=== PATIENT | male | born 1980 | race Caucasian/White ===

== ENCOUNTER 2018-08-15 16:27 | Inpatient (IN) | payer MEDICARE, MEDICAID ==
--- NOTE | 2018-08-15 18:05 | PCM.HP ---
H&P History of Present Illness - General Date of Service: 08/15/18 Admit Problem/Dx: Admission Diagnosis/Problem Admission Diagnosis/Problem Obstruction of duodenum Source of Information: Patient, Care Home Records History Limitations: Reports: Other (history from patient limited by his mental illness) - History of Present Illness Initial Comments - Free Text/Narative: Mr. Mcdaniel is a 37 yo male who presented to clinic today for evaluation of increasing abdominal distension over the past 24-48 hours. He has also had nausea and has vomited twice as well. He is having gas output from his ostomy as well as pure liquid output from his ostomy; no stool output from the ostomy. He has had some generalized abdominal discomfort as well. No fever or chills. He has not been eating or drinking well today. He has not voided today as far as the staff with him is aware. The patient has a history of recurrent SBO's. He has required surgery for this in the past but surgery is considered a last resort at this point. He was hospitalized in [place] in early April for the same issue and surgery had recommended conservative management at that time. He did well and was discharged back to the care center; he has not had any further issues until now. - Related Data Allergies/Adverse Reactions: Allergies Allergy/AdvReac Type Severity Reaction Status Date / Time No Known Allergies Allergy Verified 02/22/18 15:47 Home Medications: Home Meds Acetaminophen [Tylenol] 2 tab PO DAILY PRN 08/15/18 [History] Acetaminophen [Tylenol] 2 tab PO TID 08/15/18 [History] Albuterol Sulfate [Proventil Hfa] 2 puff INH Q6HR PRN 08/15/18 [History] Aloe Vera/Sodium Chloride [[place] Saline Nasal Gel] 2 spray CATHRYN BID PRN 08/15/18 [ History] Calcitriol 1 cap PO DAILY 08/15/18 [History] Calcium Citrate/Vitamin D3 [Calcium Citrate - Vit D Tablet] 1 tab PO TID [History] Cholecalciferol (Vitamin D3) [Vitamin D3] 1 tab PO DAILY 08/15/18 [History] Cholestyramine/Sucrose [Cholestyramine] 1 packet PO TID 08/15/18 [History] Clindamycin Phos/Benzoyl Perox [Clindamycin-Benzoyl Perox 1-5%] 1 applic TOP BID 08/15/18 [History] FLUoxetine [PROzac] 10 ml PO DAILY 08/15/18 [History] Fluticasone/Salmeterol [Advair 250-50] 1 puff INH BID 08/15/18 [History] Lactobacillus Rhamnosus GG [Culturelle] 1 cap PO BID 08/15/18 [History] Levothyroxine 25 mcg PO DAILY 08/15/18 [History] Magnesium Chloride [Mag-64] 2 tab PO TID 08/15/18 [History] Midodrine 1 tab PO BIDAC 08/15/18 [History] Multivitamin with Minerals [Multivitamins with Minerals] 1 tab PO DAILY [History] Nystatin [Nyamyc] 1 applic TOP BID PRN 08/15/18 [History] OLANZapine [ZyPREXA] 1 tab PO QID 08/15/18 [History] Potassium Chloride [Klor-Con M20] 20 meq PO BID 08/15/18 [History] Topiramate [Topamax] 250 mg PO BID 08/15/18 [History] cloZAPine [Clozapine Odt] 200 mg PO DAILY 08/15/18 [History] clonazePAM [Klonopin] 1 tab PO BID 08/15/18 [History] Past Medical History HEENT History: Reports: None Cardiovascular History: Reports: Other (See Below) Other Cardiovascular History: hypotension Respiratory History: Reports: Asthma, Sleep Apnea Other Respiratory History: acute respiratory failure Gastrointestinal History: Reports: Bowel Obstruction, Chronic Diarrhea, GERD, Other (See Below) Other Gastrointestinal History: ileostomy Genitourinary History: Reports: None Musculoskeletal History: Reports: Other (See Below) Other Musculoskeletal History: chronic pain syndrome. muscle weakness Neurological History: Reports: Brain Injury, Seizure, Other (See Below) Other Neuro History: dysphonia. dementia Psychiatric History: Reports: Anxiety, Depression, OCD, Schizophrenia Endocrine/Metabolic History: Reports: Hypoparathyroidism, Hypothyroidism, Vitamin D Deficiency Hematologic History: Reports: Other (See Below) Other Hematologic History: thrombocytopenia. vit D deficiency. hypomagnesium. hypocalcemia Immunologic History: Reports: None Oncologic (Cancer) History: Reports: None Dermatologic History: Reports: None - Infectious Disease History Infectious Disease History: Reports: None - Past Surgical History HEENT Surgical History: Reports: Oral Surgery, Tonsillectomy GI Surgical History: Reports: Appendectomy, Cholecystectomy, Colon, Hernia Repair/Other, Other (See Below) Other GI Surgeries/Procedures: ileostomy Musculoskeletal Surgical History: Reports: Arthroscopic Knee, ORIF Social & Family History - Family History Family Medical History: Unobtainable - Tobacco Use Smoking Status *Q: Never Smoker - Alcohol Use Alcohol Use History: No Alcohol Use in Last Twelve Months: No - Recreational Drug Use Recreational Drug Use: No - Living Situation & Occupation Living situation: Reports: Single, Extended Care Facility Occupation: Disabled H&P Review of Systems - Review of Systems: Review Of Systems: See Below General: Reports: No Symptoms HEENT: Reports: No Symptoms Pulmonary: Reports: No Symptoms Cardiovascular: Reports: No Symptoms Gastrointestinal: Reports: Abdominal Pain, Distension Genitourinary: Reports: Retention Musculoskeletal: Reports: No Symptoms Skin: Reports: No Symptoms Psychiatric: Reports: No Symptoms Neurological: Reports: No Symptoms Exam - Exam Exam: See Below - Vital Signs Vital Signs: Last Vital Signs Temp 37.0 C 08/15/18 17:06 Pulse 111 H 08/15/18 17:06 Resp BP 100/65 08/15/18 17:06 Pulse Ox 92 L 08/15/18 17:06 Weight: 76.476 kg - Exam General: Alert, Cooperative HEENT: Conjunctiva Clear, Mucosa Moist & [place], Posterior Pharynx Clear, Pupils Equal, Pupils Reactive, TMs Clear Neck: Supple, Trachea Midline. No: Lymphadenopathy, Thyromegaly Lungs: Clear to Auscultation, Normal Respiratory Effort Cardiovascular: Regular Rhythm, Tachycardia GI/Abdominal Exam: Soft, No Organomegaly, No Mass, Distended, Tender (mildly tender diffusely without rebound, rigidity, or guarding), Abnormal Bowel Sounds (decreased throughout), Other (ostomy draining clear-green liquid) Extremities: Non-Tender, No Pedal Edema, Normal Capillary Refill Peripheral Pulses: 2+: Radial (L), Radial (R) Skin: Warm, Dry, Intact *Q Meaningful Use (ADM) - VTE *Q VTE Anticoagulation Contraindications: Med/TX Not Indicated/Need - Problem List (1) SBO (small bowel obstruction) SNOMED Code(s): 317223282 ICD Code: K56.609 - UNSP INTESTNL OBST, UNSP TO PARTIAL VERSUS COMPLETE OBST Status: Acute Current Visit: No (2) Acute renal failure SNOMED Code(s): 31219197 ICD Code: N17.9 - ACUTE KIDNEY FAILURE, UNSPECIFIED Status: Acute Current Visit: No Qualifiers: Acute renal failure type: unspecified Qualified Code(s): N17.9 - Acute kidney failure, unspecified (3) Urinary retention SNOMED Code(s): 749198505 ICD Code: R33.9 - RETENTION OF URINE, UNSPECIFIED Status: Acute Current Visit: Yes (4) High output ileostomy SNOMED Code(s): 604294283 ICD Code: R19.8 - OTH SYMPTOMS AND SIGNS INVOLVING THE DGSTV SYS AND ABDOMEN ; Z93.2 - ILEOSTOMY STATUS Status: Acute Current Visit: Yes (5) Schizoaffective disorder SNOMED Code(s): 81506851 ICD Code: F25.9 - SCHIZOAFFECTIVE DISORDER, UNSPECIFIED Status: Acute Current Visit: Yes (6) Hypotension SNOMED Code(s): 63572372 ICD Code: I95.9 - HYPOTENSION, UNSPECIFIED Status: Chronic Current Visit : Yes Qualifiers: Hypotension type: idiopathic hypotension Qualified Code(s): I95.0 - Idiopathic hypotension (7) Seizure disorder SNOMED Code(s): 209762841 ICD Code: G40.909 - EPILEPSY, UNSP, NOT INTRACTABLE, WITHOUT STATUS EPILEPTICUS Status: Chronic Current Visit: Yes (8) Asthma SNOMED Code(s): 469669245 ICD Code: J45.909 - UNSPECIFIED ASTHMA, UNCOMPLICATED Status: Chronic Current Visit: Yes Qualifiers: Asthma severity: moderate Asthma persistence: persistent Asthma complication type: uncomplicated Qualified Code(s): J45.40 - Moderate persistent asthma, uncomplicated (9) Hypoparathyroidism SNOMED Code(s): 91527007 ICD Code: E20.9 - HYPOPARATHYROIDISM, UNSPECIFIED Status: Chronic Current Visit: Yes Qualifiers: Hypoparathyroidism type: idiopathic Qualified Code(s): E20.0 - Idiopathic hypoparathyroidism (10) Hypothyroidism SNOMED Code(s): 65294655 ICD Code: E03.9 - HYPOTHYROIDISM, UNSPECIFIED Status: Chronic Current Visit: Yes Problem List Initiated/Reviewed/Updated: Yes Orders Last 24hrs: Active Orders 24 hr Category Date Time Status Admission Status [Patient Status] [ADT] Routine ADT 08/15/18 16:37 Active NG [Gastrointestinal Tube Mgmt] [RC] ASDIRECTED Care 08/15/18 17:08 Active Notify Provider Vital Signs [RC] ASDIRECTED Care 08/15/18 17:06 Active Oxygen Therapy [RC] PRN Care 08/15/18 17:06 Active Up With Assistance [RC] ASDIRECTED Care 08/15/18 17:06 Active VTE/DVT Education [RC] PER UNIT ROUTINE Care 08/15/18 17:06 Active Vital Signs [RC] 06,10,14,18,22,02 Care 08/15/18 17:06 Active Nothing per Oral Now Diet [DIET] Diet 08/15/18 Dinner Active Chest 1V Frontal [CR] Routine Exams 08/15/18 17:38 Taken Lactated Ringers [Ringers, Lactated] 1,000 ml Med 08/15/18 17:15 Active IV ASDIRECTED Anticoagulation Contraindications VTE [AST] Per Unit Oth 08/15/18 17:06 Ordered Routine NG [Nasogastric Orogastric Tube Insertion] [OM.PC] Oth 08/15/18 17:08 Ordered Routine Resuscitation Status Routine Resus Stat 08/15/18 17:06 Ordered Medication Orders Lactated Ringer's (Ringers, Lactated) 1,000 mls @ 250 mls/hr IV ASDIRECTED BENJI Assessment/Plan Comment:: 37 yo male admitted with SBO and acute renal failure after presenting to clinic for evaluation of abdominal distension, nausea, and vomiting. #1 SBO - History and x-ray consistent with SBO. - Holding off on CT as this will not change initial management and lactate is normal. - Reasonable to start with conservative management as he has responded well to this in the past, including as recently as April of this year. - Spoke with his mom who is in agreement with hospitalization here in [place] with plan to transfer if he is not improving. - NG tube to be placed by nursing. Will have this on LIS overnight. - He will be NPO except for when this is clamped for med administration. He is on psychiatric medications that are absolutely necessary and do not have IV alternatives; therefore, these will still need to be given orally. - Will start with LR @ 250 cc/hr and monitor urine output. - Initial lactate normal. Will repeat with am labs. #2 Acute renal failure #3 Urinary retention - Creatinine is up to 3.8 today with his normal being <1. - Patient will get IV fluids as above. - Will monitor urine output. - If he does not void by 8 pm, will attempt to bladder scan him. This will be difficult, though, with the amount of air he has in his bowels. - May need to do an I/O catheterization to clarify if he has urine in his bladder. - Will reassess at 8 pm. #4 High output ileostomy - Output right now is mainly liquid in comparison to his usual loose stool. - Will monitor closely but will not add any additional fiber to help slow this down in the setting of a known bowel obstruction. #5 Schizoaffective disorder #6 Hypotension #7 Seizure Disorder #8 Asthma #9 Hypoparathyroidism #10 Hypothyroidism - Above problems are stable. - Continue only essential home medications as his NG tube will need to be clamped for 30 minutes after each administration. Patient will be admitted acute due to anticipated need for admission >48 hours. See details under problems above. Code status is DNR/DNI - discussed with mom on admission. Holding off on VTE prophylaxis until labs tomorrow am.
--- NOTE | 2018-08-15 18:12 | CR ---
[id number] RAD/RAD Chest PA or AP 1V EXAM: FRONTAL CHEST INDICATION: Nasogastric tube placement. COMPARISON: None. DISCUSSION: A nasogastric tube is present tip at the level of the distal esophagus. Consider advancement of at least 10 cm and reimaging. The lungs are hypoinflated. There is left base atelectasis which could obscure early infiltrates. Heart size is obscured by the volume loss in the left lung base. IMPRESSION: 1. Nasogastric tube tip distal esophagus. Consider advancement and repeat imaging. Hilario Castaneda MD 08/15/18 1417 Thank you for allowing us to participate in the care of your patient.
[2018-08-15] MEDS ORDERED: Sodium Chloride 0.65% Nasal Spray 45 ML Bottle NAS PRN (18:33)
[2018-08-15] MEDS ORDERED: Albuterol 0.083% 2.5 MG/3 ML Neb Soln INH PRN (18:33)
--- NOTE | 2018-08-15 18:58 | CR ---
[id number] RAD/RAD Chest PA or AP 1V EXAM: FRONTAL CHEST INDICATION: Nasogastric tube placement. COMPARISON: Radiographs from earlier same date. DISCUSSION: A limited view of the lower chest and upper abdomen was obtained for nasogastric tube placement. A nasogastric tube has been advanced with the tip now in the proximal to mid gastric body in satisfactory position. Partially characterized dilated bowel loops in the upper abdomen. IMPRESSION: 1. A nasogastric tube is in satisfactory position tip in the proximal to mid gastric body. Hilario Castaneda MD 08/15/18 2152 Thank you for allowing us to participate in the care of your patient.
[2018-08-15] MEDS: Lactated Ringers 1,000 ML IV SCH ×2 (19:00→23:04)
[2018-08-15] MEDS: OLANZapine 10 MG Tab NGTUBE SCH (20:55)
[2018-08-15] MEDS: Topiramate 50 MG Tab NGTUBE SCH (20:55)
[2018-08-15] MEDS: ClonazePAM 0.5 MG Tab NGTUBE SCH (20:55)
[2018-08-15] MEDS: Fluticasone-Salmeterol 113-14 MCG Powder Inhalant INH SCH (20:55)
[2018-08-16] MEDS: Lactated Ringers 1,000 ML IV SCH ×3 (03:03→22:17)
[2018-08-16] MEDS: Midodrine 2.5 MG Tab NGTUBE SCH ×2 (06:09→16:52)
[2018-08-16 07:05] LABS: ANION GAP 17.4 mmol/L (10-20)
[2018-08-16] MEDS ORDERED: FLUOXETINE PO SCH (08:00)
[2018-08-16] MEDS: ClonazePAM 0.5 MG Tab NGTUBE SCH ×2 (08:24→22:29)
[2018-08-16] MEDS: Topiramate 50 MG Tab NGTUBE SCH ×2 (08:24→22:29)
[2018-08-16] MEDS: OLANZapine 10 MG Tab NGTUBE SCH ×4 (08:25→22:29)
[2018-08-16] MEDS: Fluticasone-Salmeterol 113-14 MCG Powder Inhalant INH SCH ×2 (08:29→22:42)
[2018-08-16] MEDS ORDERED: Lactated Ringers 1,000 ML IV SCH (08:45)
--- NOTE | 2018-08-16 09:19 | PCM.PN ---
- General Info Date of Service: 08/16/18 Subjective Update: 37 yo male hospital day #2 admitted with a small bowel obstruction. Patient did well overnight. Refused catheter but did void on his own. States his pain is improved this morning. Still mainly liquid coming from his ostomy. Has had no nausea or vomiting since admission. No fever. He is wondering if he can eat. - Review of Systems General: Reports: No Symptoms HEENT: Reports: No Symptoms Pulmonary: Reports: No Symptoms Cardiovascular: Reports: No Symptoms Genitourinary: Reports: No Symptoms Musculoskeletal: Reports: No Symptoms Skin: Reports: No Symptoms Neurological: Reports: No Symptoms - Patient Data Vitals - Most Recent: Last Vital Signs Temp 36.7 C 08/16/18 06:00 Pulse 104 H 08/16/18 06:00 Resp 16 08/16/18 06:00 BP 102/57 L 08/16/18 06:00 Pulse Ox 92 L 08/16/18 06:00 Weight - Most Recent: 76.476 kg I&O - Last 24 Hours: Intake & Output 08/15/18 08/16/18 08/16/18 22:59 06:59 14:59 Intake Total 2832 Output Total 1500 2750 Balance -1500 82 Lab Results Last 24 Hours: Laboratory Results - last 24 hr 08/16/18 08/16/18 08/16/18 Range/Units 06:31 06:31 06:31 WBC 14.4 H (4.0-10.0) x10^3/uL RBC 5.27 (4.5-6.0) x10^6/uL Hgb 14.2 (14.0-18.0) g/dL Hct 42.3 (40.0-52.0) % MCV 80.3 D (78.0-93.0) fL MCH 26.9 (26.0-32.0) pg MCHC 33.6 (32.0-36.0) g/dL RDW Coeff of Shyann 15.8 H (10.0-15.0) % Plt Count 170 (130-400) x10^3/uL Neut % (Auto) 68.0 (50.0-80.0) % Lymph % (Auto) 17.8 L (25.0-50.0) % [place] % (Auto) 13.1 H (2.0-11.0) % Eos % (Auto) 1.0 (0.0-4.0) % Baso % (Auto) 0.1 L (0.2-1.2) % Sodium 132 L (136-145) mmol/L Potassium 3.4 L D (3.5-5.1) mmol/L Chloride 91 L (98-107) mmol/L Carbon Dioxide 27 (21-32) mmol/L Anion Gap 17.4 (10-20) mmol/L BUN 56 H (7-18) mg/dL Creatinine 1.9 H D (0.70-1.30) mg/dL Est Cr Clr Drug Dosing 44.14 mL/min Estimated GFR (MDRD) 40 Glucose 109 H (74-106) mg/dL Lactic Acid 1.3 (0.4-2.0) mmol/L Calcium 7.7 L D (8.5-10.1) mg/dL Med Orders - Current: Current Medications Albuterol (Proventil Neb Soln) 2.5 mg INH Q6H PRN PRN Reason: wheezing Clonazepam (Klonopin) 1 mg NGTUBE BID [facility] Last Admin: 08/16/18 08:24 Dose: 1 mg Lactated Ringer's (Ringers, Lactated) 1,000 mls @ 250 mls/hr IV ASDIRECTED BENJI Stop: 08/16/18 12:46 Lactated Ringer's (Ringers, Lactated) 1,000 mls @ 125 mls/hr IV ASDIRECTED BENJI Midodrine (Midodrine) 5 mg NGTUBE BIDAC [facility] Last Admin: 08/16/18 06:09 Dose: 5 mg Non-Formulary Medication (Aloe Vera/Sodium Chloride [[place] Saline Nasal Gel]) 2 spray CATHRYN BID PRN PRN Reason: Rash Non-Formulary Medication (Clozapine [Clozapine Odt]) 200 mg PO DAILY BENJI Non-Formulary Medication (Fluoxetine) 10 ml PO DAILY BENJI Olanzapine (Zyprexa) 10 mg NGTUBE QID [facility] Last Admin: 08/16/18 08:25 Dose: 10 mg Fluticasone/Salmeterol (Fluticasone-Salmeterol 113-14 Mcg Powder Inh) 0 puff INH BID [facility] Last Admin: 08/16/18 08:29 Dose: Not Given Topiramate (Topamax) 250 mg NGTUBE BID [facility] Last Admin: 08/16/18 08:24 Dose: 250 mg Discontinued Medications Lactated Ringer's (Ringers, Lactated) 1,000 mls @ 250 mls/hr IV ASDIRECTED [facility] Last Admin: 08/16/18 03:03 Dose: 250 mls/hr - Exam General: Alert, Oriented HEENT: Pupils Equal, Pupils Reactive, Mucous Membr. Moist/[place] Neck: Supple, Trachea Midline, No Thyromegaly. No: Lymphadenopathy Lungs: Clear to Auscultation, Normal Respiratory Effort Cardiovascular: Regular Rhythm, No Murmurs, Tachycardia GI/Abdominal Exam: Soft, Distended (but much improved compared to yesterday), Tender (mild diffuse tenderness also improved compared to yesterday; no rebound , rigidity, or guarding), Abnormal Bowel Sounds (hypoactive bowel sounds) Extremities: Non-Tender, No Pedal Edema, Normal Capillary Refill Peripheral Pulses: 2+: Radial (L), Radial (R) Skin: Warm, Dry, Intact Neurological: No New Focal Deficit - Problem List & Annotations (1) SBO (small bowel obstruction) SNOMED Code(s): 449956293 Code(s): K56.609 - UNSP INTESTNL OBST, UNSP TO PARTIAL VERSUS COMPLETE OBST Status: Acute Current Visit: No (2) Acute renal failure SNOMED Code(s): 19651101 Code(s): N17.9 - ACUTE KIDNEY FAILURE, UNSPECIFIED Status: Acute Current Visit: No Qualifiers: Acute renal failure type: unspecified Qualified Code(s): N17.9 - Acute kidney failure, unspecified (3) Urinary retention SNOMED Code(s): 235099739 Code(s): R33.9 - RETENTION OF URINE, UNSPECIFIED Status: Acute Current Visit: Yes (4) High output ileostomy SNOMED Code(s): 241867158 Code(s): R19.8 - OTH SYMPTOMS AND SIGNS INVOLVING THE DGSTV SYS AND ABDOMEN; Z93.2 - ILEOSTOMY STATUS Status: Acute Current Visit: Yes (5) Schizoaffective disorder SNOMED Code(s): 41003383 Code(s): F25.9 - SCHIZOAFFECTIVE DISORDER, UNSPECIFIED Status: Acute Current Visit: Yes (6) Hypotension SNOMED Code(s): 30255263 Code(s): I95.9 - HYPOTENSION, UNSPECIFIED Status: Chronic Current Visit: Yes Qualifiers: Hypotension type: idiopathic hypotension Qualified Code(s): I95.0 - Idiopathic hypotension (7) Seizure disorder SNOMED Code(s): 166455935 Code(s): G40.909 - EPILEPSY, UNSP, NOT INTRACTABLE, WITHOUT STATUS EPILEPTICUS Status: Chronic Current Visit: Yes (8) Asthma SNOMED Code(s): 176247173 Code(s): J45.909 - UNSPECIFIED ASTHMA, UNCOMPLICATED Status: Chronic Current Visit: Yes Qualifiers: Asthma severity: moderate Asthma persistence: persistent Asthma complication type: uncomplicated Qualified Code(s): J45.40 - Moderate persistent asthma, uncomplicated (9) Hypoparathyroidism SNOMED Code(s): 69044454 Code(s): E20.9 - HYPOPARATHYROIDISM, UNSPECIFIED Status: Chronic Current Visit: Yes Qualifiers: Hypoparathyroidism type: idiopathic Qualified Code(s): E20.0 - Idiopathic hypoparathyroidism (10) Hypothyroidism SNOMED Code(s): 57112212 Code(s): E03.9 - HYPOTHYROIDISM, UNSPECIFIED Status: Chronic Current Visit: Yes - Problem List Review Problem List Initiated/Reviewed/Updated: Yes - My Orders Last 24 Hours: My Active Orders 08/15/18 16:37 Admission Status [Patient Status] [ADT] Routine 08/15/18 17:06 Notify Provider Vital Signs [RC] 06,10,14,18,22,02 Oxygen Therapy [RC] .PRN Up With Assistance [RC] 08,20 VTE/DVT Education [RC] .PRN Vital Signs [RC] 06,10,14,18,22,02 Anticoagulation Contraindications VTE [AST] Per Unit Routine Resuscitation Status Routine 08/15/18 17:08 NG [Gastrointestinal Tube Mgmt] [RC] 08,20 NG [Nasogastric Orogastric Tube Insertion] [OM.PC] Routine 08/15/18 18:33 Albuterol [Proventil Neb Soln] 2.5 mg INH Q6H PRN Aloe Vera/Sodium Chloride [[place] Saline Nasal Gel] 2 spray CATHRYN BID PRN 08/15/18 20:00 ClonazePAM [KlonoPIN] 1 mg NGTUBE BID Fluticasone/Salmeterol [Fluticasone-Salmeterol 113-14 MCG Powder Inh] 0 puff INH BID OLANZapine [ZyPREXA] 10 mg NGTUBE QID Topiramate [Topamax] 250 mg NGTUBE BID 08/15/18 23:48 CULTURE MRSA SURVEY [RM] Routine 08/15/18 Dinner Nothing per Oral Now Diet [DIET] 08/16/18 07:00 Midodrine 5 mg NGTUBE BIDAC 08/16/18 08:00 FLUoxetine 10 ml PO DAILY cloZAPine [Clozapine Odt] 200 mg PO DAILY 08/16/18 08:45 Lactated Ringers [Ringers, Lactated] 1,000 ml IV ASDIRECTED 08/16/18 13:00 Lactated Ringers @ 125 MLS/HR(1,000ml) Lactated Ringers [Ringers, Lactated] 1, 000 ml IV ASDIRECTED 08/17/18 05:11 BASIC METABOLIC PANEL,BMP [CHEM] Routine CBC WITH AUTO DIFF [HEME] Routine - Assessment Assessment:: 37 yo male hospital day #2 admitted with SBO and HERMES. Labs much better today. Patient is also feeling much better and is asking to eat. - Plan Plan:: #1 SBO - History and x-ray consistent with SBO. - Holding off on CT as this will not tire changer aircraft at this point. Will reconsider if symptoms worsen again. - Still having a lot of NG tube output. Therefore, will continue this on LIS. - He will be NPO except for when this is clamped for med administration. He is on psychiatric medications that are absolutely necessary and do not have IV alternatives; therefore, these will still need to be given orally. - He can also have ice chips today. - Continue LR @ 250 cc/hr for another liter and then decrease rate to 125 cc/ hr. Net fluid balance has been negative so will continue to monitor this closely. - Initial and repeat lactate both normal. WBC down compared to yesterday; will continue to monitor off antibiotics. #2 Acute renal failure #3 Urinary retention - Creatinine is improved to from 3.8 yesterday. His normal is <1. - Patient will get IV fluids as above. - Will continue to monitor urine output closely. #4 High output ileostomy - Output right now is mainly liquid in comparison to his usual loose stool. - Will monitor closely but will not add any additional fiber to help slow this down in the setting of a known bowel obstruction. #5 Schizoaffective disorder #6 Hypotension #7 Seizure Disorder #8 Asthma #9 Hypoparathyroidism #10 Hypothyroidism - Above problems are stable. - Continue only essential home medications as his NG tube will need to be clamped for 30 minutes after each administration. Patient will remain on acute status today - anticipate he will be admitted over the weekend given it is unlikely he will be prepared for d/c tomorrow and the care center is not likely to take him back on a Sunday. Parents updated. See details under problems above. Code status is DNR/DNI - discussed with mom on admission. Will start heparin TID for VTE prophylaxis.
[2018-08-16] MEDS: Heparin Sodium 5,000 Units/ML Vial SUBCUT SCH ×2 (11:55→16:51)
[2018-08-16] MEDS: FLUOXETINE 40 MG PO SCH (14:21)
[2018-08-16] MEDS: CLOZAPINE 200 MG PO SCH ×2 (14:21→22:30)
[2018-08-16] MEDS: Cholestyramine/Aspartame Powder 4 GM Packet PO SCH (16:51)
[2018-08-17] MEDS: Heparin Sodium 5,000 Units/ML Vial SUBCUT SCH ×3 (01:55→17:29)
[2018-08-17] MEDS: Lactated Ringers 1,000 ML IV SCH ×3 (05:51→21:41)
[2018-08-17] MEDS: Cholestyramine/Aspartame Powder 4 GM Packet PO SCH ×4 (06:34→16:01)
[2018-08-17] MEDS: Midodrine 2.5 MG Tab NGTUBE SCH ×2 (06:34→16:01)
[2018-08-17 08:01] LABS: CHLORIDE,CL 94 mmol/L (98-107); SODIUM,NA 135 mmol/L (136-145)
[2018-08-17 08:15] LABS: ANION GAP 13.5 mmol/L (10-20)
[2018-08-17] MEDS: Topiramate 50 MG Tab NGTUBE SCH ×2 (09:26→21:45)
[2018-08-17] MEDS: OLANZapine 10 MG Tab NGTUBE SCH ×4 (09:27→21:46)
[2018-08-17] MEDS: ClonazePAM 0.5 MG Tab NGTUBE SCH ×2 (09:27→21:46)
[2018-08-17] MEDS: CLOZAPINE 200 MG PO SCH ×2 (09:36→21:50)
[2018-08-17] MEDS: FLUOXETINE 40 MG PO SCH (09:36)
[2018-08-17] MEDS: Fluticasone-Salmeterol 113-14 MCG Powder Inhalant INH SCH ×2 (09:37→21:51)
--- NOTE | 2018-08-17 12:08 | PCM.PN ---
- General Info Date of Service: 08/17/18 Admission Dx/Problem (Free Text): History: He is not considered a surgical candidate and has had a few episodes of partial bowel obstruction, relieved with conservative Rx. He was admitted recently with a similar episode, had abdominal distention, nausea and vomiting. He has Hx of small bowel resection, some colon surgery and ileostomy. On admission he was having only a small amount of liquid and gas from the ileostomy, no stool. He was admitted for NG suction, improved rapidly, has had the NG tube clamped since yesterday evening and has been getting full liquids and still feels good, would like scrambled eggs and a pizza he says. His K+ however has gone down from 3.4 yesterday down to 2.5 today. Exam: -No respiratory distress -VS normal -Abdomen not distended, bowel sounds are normal intensity but still mildly hollowsounding Impression: -Schizophrenia -Bowel resection and ileostomy -Partial bowel obstruction, improving -Hypokalemia Plan: -Remove NG tube -Start soft diet -Start oral KCl supplement - Patient Data Vitals - Most Recent: Last Vital Signs Temp 37.3 C 08/17/18 10:00 Pulse 101 H 08/17/18 10:00 Resp 16 08/17/18 10:00 BP 90/60 08/17/18 10:00 Pulse Ox 93 L 08/17/18 10:00 Weight - Most Recent: 76.476 kg I&O - Last 24 Hours: Intake & Output 08/16/18 08/17/18 08/17/18 22:59 06:59 14:59 Intake Total 2073 1677 510 Output Total 500 2130 350 Balance 1573 -453 160 Lab Results Last 24 Hours: Laboratory Results - last 24 hr 08/17/18 08/17/18 Range/Units 07:32 07:32 WBC 10.2 H (4.0-10.0) x10^3/uL RBC 4.65 (4.5-6.0) x10^6/uL Hgb 12.5 L D (14.0-18.0) g/dL Hct 38.8 L (40.0-52.0) % MCV 83.4 D (78.0-93.0) fL MCH 26.9 (26.0-32.0) pg MCHC 32.2 (32.0-36.0) g/dL RDW Coeff of Shyann 15.5 H (10.0-15.0) % Plt Count 144 (130-400) x10^3/uL Neut % (Auto) 69.7 (50.0-80.0) % Lymph % (Auto) 16.5 L (25.0-50.0) % [place] % (Auto) 12.6 H (2.0-11.0) % Eos % (Auto) 1.0 (0.0-4.0) % Baso % (Auto) 0.2 (0.2-1.2) % Sodium 135 L (136-145) mmol/L Potassium 2.5 L* (3.5-5.1) mmol/L Chloride 94 L (98-107) mmol/L Carbon Dioxide 30 (21-32) mmol/L Anion Gap 13.5 (10-20) mmol/L BUN 24 H D (7-18) mg/dL Creatinine 0.9 (0.70-1.30) mg/dL Est Cr Clr Drug Dosing 93.19 mL/min Estimated GFR (MDRD) > 60 Glucose 94 (74-106) mg/dL Calcium 7.4 L (8.5-10.1) mg/dL Lucas Results Last 24 Hours: Microbiology 08/15/18 23:48 MRSA Surveillance Culture - Final Nares, Unspecified (Mrsa) Staphylococcus Aureus Med Orders - Current: Current Medications Albuterol (Proventil Neb Soln) 2.5 mg INH Q6H PRN PRN Reason: wheezing Cholestyramine Resin (Prevalite Packet) 4 gm PO TIDAC [facility] Last Admin: 08/17/18 06:34 Dose: 4 gm Clonazepam (Klonopin) 1 mg NGTUBE BID [facility] Last Admin: 08/17/18 09:27 Dose: 1 mg Heparin Sodium (Porcine) (Heparin Sodium) 5,000 units SUBCUT Q8H [facility] Last Admin: 08/17/18 09:27 Dose: 5,000 units Lactated Ringer's (Ringers, Lactated) 1,000 mls @ 125 mls/hr IV ASDIRECTED [facility] Last Admin: 08/17/18 05:51 Dose: 125 mls/hr Midodrine (Midodrine) 5 mg NGTUBE BIDAC [facility] Last Admin: 08/17/18 06:34 Dose: 5 mg Clozapine 200mg 0 mg PO BID [facility] Last Admin: 08/17/18 09:36 Dose: 200 mg Fluoxetine. 40mg ( (Own Supply)) 1 tab PO DAILY [facility] Last Admin: 08/17/18 09:36 Dose: 1 tab Clozapine 100mg 0 mg PO BEDTIME [facility] Last Admin: 08/16/18 22:31 Dose: 100 mg Olanzapine (Zyprexa) 10 mg NGTUBE QID [facility] Last Admin: 08/17/18 09:27 Dose: 10 mg Potassium Chloride (Potassium Chloride Solution) 20 meq PO BID [facility] Fluticasone/Salmeterol (Fluticasone-Salmeterol 113-14 Mcg Powder Inh) 0 puff INH BID [facility] Last Admin: 08/17/18 09:37 Dose: 1 puff Sodium Chloride ([place] Nasal [place]) 0 ml CATHRYN BID PRN PRN Reason: Rash Topiramate (Topamax) 250 mg NGTUBE BID [facility] Last Admin: 08/17/18 09:26 Dose: 250 mg Discontinued Medications Lactated Ringer's (Ringers, Lactated) 1,000 mls @ 250 mls/hr IV ASDIRECTED [facility] Last Admin: 08/16/18 03:03 Dose: 250 mls/hr Lactated Ringer's (Ringers, Lactated) 1,000 mls @ 250 mls/hr IV ASDIRECTED [facility] Stop: 08/16/18 12:46 Last Admin: 08/16/18 09:30 Dose: 250 mls/hr - Problem List Review Problem List Initiated/Reviewed/Updated: Yes - My Orders Last 24 Hours: My Active Orders 08/17/18 09:46 NG [Nasogastric Orogastric Tube Removal] [OM.PC] Routine 08/17/18 12:15 Potassium Chloride [Potassium Chloride Solution] 20 meq PO BID 08/17/18 Lunch Soft Diet [DIET] Soft Diet [DIET]
[2018-08-17] MEDS: Potassium Chloride 10% 20 MEQ/15 ML Soln 15 ML UD Cup PO SCH ×2 (12:38→21:46)
[2018-08-18] MEDS: Heparin Sodium 5,000 Units/ML Vial SUBCUT SCH ×4 (03:20→21:47)
[2018-08-18] MEDS: Lactated Ringers 1,000 ML IV SCH (05:52)
[2018-08-18] MEDS: Midodrine 2.5 MG Tab NGTUBE SCH ×2 (05:59→17:21)
[2018-08-18] MEDS: Cholestyramine/Aspartame Powder 4 GM Packet PO SCH ×3 (05:59→16:43)
[2018-08-18] MEDS: CLOZAPINE 200 MG PO SCH ×2 (08:09→20:28)
[2018-08-18] MEDS: FLUOXETINE 40 MG PO SCH (08:09)
[2018-08-18] MEDS: ClonazePAM 0.5 MG Tab NGTUBE SCH ×2 (08:11→20:28)
[2018-08-18] MEDS: Topiramate 50 MG Tab NGTUBE SCH ×2 (08:11→20:28)
[2018-08-18] MEDS: OLANZapine 10 MG Tab NGTUBE SCH ×4 (08:11→21:47)
[2018-08-18] MEDS: Fluticasone-Salmeterol 113-14 MCG Powder Inhalant INH SCH ×2 (08:11→20:27)
[2018-08-18] MEDS: Potassium Chloride 10% 20 MEQ/15 ML Soln 15 ML UD Cup PO SCH (08:12)
--- NOTE | 2018-08-18 10:42 | PCM.PN ---
- General Info Date of Service: 08/18/18 Admission Dx/Problem (Free Text): History: His NG tube was removed yesterday, having been clamped overnight before that, and he tolerated the increase in diet up to Soft Diet. He is eating well and his abdomen is not distended. He has a long prolapse of his small bowel into the ileostomy but is stooling OK into the bag. He gets sweaty at night, apparently this is a long-term problem for him, but he is afebrile. Mildly hypotensive, BP 86 this morning. He is not on any antihypertensives. He was started on KCl 20 mEq BID yesterday because of K+ level of 2.5, but he is severely dislikes the liquid form, says he could better swallow a pill, does OK with that. Exam: -Severely dysarthric, cant assess his orientation -He is calm and cooperative -Lungs clear -Heart sounds normal and regular -Abdomen is soft and not distended, not tender -10 cm prolapse of small bowel into his ileostomy bag which is a long-term problem Impression: -Partial small bowel obstruction, resolved with conservative Rx, brief NG suction -Hypokalemia, probably because of the NG suction on admit, tolerates liquid KCl poorly -Schizophrenia, dysarthria -Ileostomy with long prolapse of small bowel but functioning OK Plan: -Change KCl to 10 mg PO BID -Get BMP tomorrow -Anticipate discharge back to [facility] tomorrow - Patient Data Vitals - Most Recent: Last Vital Signs Temp 36.9 C 08/18/18 10:00 Pulse 96 08/18/18 10:00 Resp 18 08/18/18 10:00 BP 100/62 08/18/18 10:00 Pulse Ox 93 L 08/18/18 10:00 Weight - Most Recent: 76.476 kg I&O - Last 24 Hours: Intake & Output 08/17/18 08/18/18 08/18/18 22:59 06:59 14:59 Intake Total 1702 1240 Output Total 950 800 Balance 752 440 Lucas Results Last 24 Hours: Microbiology 08/15/18 23:48 MRSA Surveillance Culture - Final Nares, Unspecified (Mrsa) Staphylococcus Aureus Med Orders - Current: Current Medications Albuterol (Proventil Neb Soln) 2.5 mg INH Q6H PRN PRN Reason: wheezing Cholestyramine Resin (Prevalite Packet) 4 gm PO TIDAC [facility] Last Admin: 08/18/18 05:59 Dose: 4 gm Clonazepam (Klonopin) 1 mg NGTUBE BID [facility] Last Admin: 08/18/18 08:11 Dose: 1 mg Heparin Sodium (Porcine) (Heparin Sodium) 5,000 units SUBCUT Q8H [facility] Last Admin: 08/18/18 05:53 Dose: 5,000 units Midodrine (Midodrine) 5 mg NGTUBE BIDAC [facility] Last Admin: 08/18/18 05:59 Dose: 5 mg Clozapine 200mg 0 mg PO BID [facility] Last Admin: 08/18/18 08:09 Dose: 200 mg Fluoxetine. 40mg ( (Own Supply)) 1 tab PO DAILY [facility] Last Admin: 08/18/18 08:09 Dose: 1 tab Clozapine 100mg 0 mg PO BEDTIME [facility] Last Admin: 08/17/18 21:51 Dose: 100 mg Olanzapine (Zyprexa) 10 mg NGTUBE QID [facility] Last Admin: 08/18/18 08:11 Dose: 10 mg Potassium Chloride (Klor-Con 10) 10 meq PO BIDMEALS [facility] Fluticasone/Salmeterol (Fluticasone-Salmeterol 113-14 Mcg Powder Inh) 0 puff INH BID [facility] Last Admin: 08/18/18 08:11 Dose: 1 puff Sodium Chloride ([place] Nasal [place]) 0 ml CATHRYN BID PRN PRN Reason: Rash Topiramate (Topamax) 250 mg NGTUBE BID [facility] Last Admin: 08/18/18 08:11 Dose: 250 mg Discontinued Medications Heparin Sodium (Porcine) (Heparin Sodium) 5,000 units SUBCUT Q8H [facility] Last Admin: 08/18/18 03:20 Dose: Not Given Lactated Ringer's (Ringers, Lactated) 1,000 mls @ 250 mls/hr IV ASDIRECTED [facility] Last Admin: 08/16/18 03:03 Dose: 250 mls/hr Lactated Ringer's (Ringers, Lactated) 1,000 mls @ 250 mls/hr IV ASDIRECTED [facility] Stop: 08/16/18 12:46 Last Admin: 08/16/18 09:30 Dose: 250 mls/hr Lactated Ringer's (Ringers, Lactated) 1,000 mls @ 125 mls/hr IV ASDIRECTED [facility] Last Admin: 08/18/18 05:52 Dose: 125 mls/hr Potassium Chloride (Potassium Chloride Solution) 20 meq PO BID [facility] Last Admin: 08/18/18 08:12 Dose: 20 meq - Problem List Review Problem List Initiated/Reviewed/Updated: Yes - My Orders Last 24 Hours: My Active Orders 08/17/18 09:46 NG [Nasogastric Orogastric Tube Removal] [OM.PC] Routine 08/17/18 Lunch Soft Diet [DIET] Soft Diet [DIET] 08/18/18 18:00 Potassium Chloride [Klor-Con 10] 10 meq PO BIDMEALS 08/19/18 07:30 BASIC METABOLIC PANEL,BMP [CHEM] Routine
[2018-08-18] MEDS: Potassium Chloride 10 MEQ Tab.ER PO SCH (17:21)
[2018-08-18] MEDS ORDERED: Ondansetron 4 MG/2 ML SDV IVPUSH STA (21:52)
[2018-08-18] MEDS: Sodium Chloride 0.9% 10 ML Syringe IV PRN ×2 (22:04→22:11)
[2018-08-19] MEDS: OLANZapine 10 MG Tab NGTUBE SCH ×2 (05:45→07:24)
[2018-08-19] MEDS: Midodrine 2.5 MG Tab NGTUBE SCH (06:42)
[2018-08-19] MEDS: Heparin Sodium 5,000 Units/ML Vial SUBCUT SCH (06:42)
[2018-08-19] MEDS: Cholestyramine/Aspartame Powder 4 GM Packet PO SCH (06:47)
[2018-08-19 06:50] LABS: CHLORIDE,CL 102 mmol/L (98-107); SODIUM,NA 138 mmol/L (136-145)
[2018-08-19 06:51] LABS: ANION GAP 14.2 mmol/L (10-20)
[2018-08-19] MEDS: FLUOXETINE 40 MG PO SCH (07:23)
[2018-08-19] MEDS: CLOZAPINE 200 MG PO SCH (07:23)
[2018-08-19] MEDS: Fluticasone-Salmeterol 113-14 MCG Powder Inhalant INH SCH (07:24)
[2018-08-19] MEDS: ClonazePAM 0.5 MG Tab NGTUBE SCH (07:24)
[2018-08-19] MEDS: Topiramate 50 MG Tab NGTUBE SCH (07:25)
[2018-08-19] MEDS: Potassium Chloride 10 MEQ Tab.ER PO SCH (07:26)
--- NOTE | 2018-08-19 08:26 | PCM.DCSUM1 ---
Discharge Summary - Hospital Course Brief History: Mr. Mcdaniel is a 37 yo male admitted with small bowel obstruction and acute kidney injury after presenting to clinic for evaluation of abdominal distension, nausea, and vomiting. - Discharge Data Discharge Date: 08/19/18 Discharge Disposition: DC/Tfer to [facility] 03 Condition: Good - Discharge Diagnosis/Problem(s) (1) SBO (small bowel obstruction) SNOMED Code(s): 360185352 ICD Code: K56.609 - UNSP INTESTNL OBST, UNSP TO PARTIAL VERSUS COMPLETE OBST Status: Acute Current Visit: No (2) Acute renal failure SNOMED Code(s): 46222814 ICD Code: N17.9 - ACUTE KIDNEY FAILURE, UNSPECIFIED Status: Acute Current Visit: No Qualifiers: Acute renal failure type: unspecified Qualified Code(s): N17.9 - Acute kidney failure, unspecified (3) Urinary retention SNOMED Code(s): 877395395 ICD Code: R33.9 - RETENTION OF URINE, UNSPECIFIED Status: Acute Current Visit: Yes (4) High output ileostomy SNOMED Code(s): 446543434 ICD Code: R19.8 - OTH SYMPTOMS AND SIGNS INVOLVING THE DGSTV SYS AND ABDOMEN ; Z93.2 - ILEOSTOMY STATUS Status: Acute Current Visit: Yes (5) Schizoaffective disorder SNOMED Code(s): 34601745 ICD Code: F25.9 - SCHIZOAFFECTIVE DISORDER, UNSPECIFIED Status: Acute Current Visit: Yes (6) Hypotension SNOMED Code(s): 68701184 ICD Code: I95.9 - HYPOTENSION, UNSPECIFIED Status: Chronic Current Visit : Yes Qualifiers: Hypotension type: idiopathic hypotension Qualified Code(s): I95.0 - Idiopathic hypotension (7) Seizure disorder SNOMED Code(s): 939995218 ICD Code: G40.909 - EPILEPSY, UNSP, NOT INTRACTABLE, WITHOUT STATUS EPILEPTICUS Status: Chronic Current Visit: Yes (8) Asthma SNOMED Code(s): 904076287 ICD Code: J45.909 - UNSPECIFIED ASTHMA, UNCOMPLICATED Status: Chronic Current Visit: Yes Qualifiers: Asthma severity: moderate Asthma persistence: persistent Asthma complication type: uncomplicated Qualified Code(s): J45.40 - Moderate persistent asthma, uncomplicated (9) Hypoparathyroidism SNOMED Code(s): 33481624 ICD Code: E20.9 - HYPOPARATHYROIDISM, UNSPECIFIED Status: Chronic Current Visit: Yes Qualifiers: Hypoparathyroidism type: idiopathic Qualified Code(s): E20.0 - Idiopathic hypoparathyroidism (10) Hypothyroidism SNOMED Code(s): 38517991 ICD Code: E03.9 - HYPOTHYROIDISM, UNSPECIFIED Status: Chronic Current Visit: Yes - Patient Summary/Data Operative Procedure(s) Performed: none Complications: none Consults: none Labs Pending at D/C: none Recommended Follow-up Testing/Procedures: BMP in 1 week Planned Operative Procedure(s) after DC: none Hospital Course: Patient was admitted acute and an NG tube was placed. He was kept NPO and given IV fluids. By the following morning, he was feeling better but his NG tube continued with significant output. Therefore, he was allowed ice chips only. By that afternoon, the output had decreased significantly. The NG tube was clamped and he was started on clear liquids. By the following morning, he continued to do well and the NG tube was removed without complication. His diet has been advanced to soft without complication as well. He is eating and drinking well and no longer requiring IV fluids. His ostomy output is back to normal. He did have some hypokalemia, likely related to his oral potassium being held. His hospitalization was otherwise uncomplicated and he will be dismissed back to the care center today in stable condition. - Patient Instructions Diet: GI Soft/Low Residue/Low Fiber Activity: As Tolerated Driving: Do Not Drive Showering/Bathing: May Shower Notify Provider of: Fever, Increased Pain, Nausea and/or Vomiting - Discharge Plan *PRESCRIPTION DRUG MONITORING PROGRAM REVIEWED*: No *COPY OF PRESCRIPTION DRUG MONITORING REPORT IN PATIENT JANET: No Home Medications: Home Meds Acetaminophen [Tylenol] 2 tab PO DAILY PRN 08/15/18 [History] Acetaminophen [Tylenol] 2 tab PO TID 08/15/18 [History] Albuterol Sulfate [Proventil Hfa] 2 puff INH Q6HR PRN 08/15/18 [History] Aloe Vera/Sodium Chloride [[place] Saline Nasal Gel] 2 spray CATHRYN BID PRN 08/15/18 [ History] Calcitriol 1 cap PO DAILY 08/15/18 [History] Calcium Citrate/Vitamin D3 [Calcium Citrate - Vit D Tablet] 1 tab PO TID [History] Cholecalciferol (Vitamin D3) [Vitamin D3] 1 tab PO DAILY 08/15/18 [History] Cholestyramine/Sucrose [Cholestyramine] 1 packet PO TID 08/15/18 [History] Clindamycin Phos/Benzoyl Perox [Clindamycin-Benzoyl Perox 1-5%] 1 applic TOP BID 08/15/18 [History] FLUoxetine [PROzac] 10 ml PO DAILY 08/15/18 [History] Fluticasone/Salmeterol [Advair 250-50] 1 puff INH BID 08/15/18 [History] Lactobacillus Rhamnosus GG [Culturelle] 1 cap PO BID 08/15/18 [History] Levothyroxine 25 mcg PO DAILY 08/15/18 [History] Magnesium Chloride [Mag-64] 2 tab PO TID 08/15/18 [History] Midodrine 1 tab PO BIDAC 08/15/18 [History] Multivitamin with Minerals [Multivitamins with Minerals] 1 tab PO DAILY [History] Nystatin [Nyamyc] 1 applic TOP BID PRN 08/15/18 [History] OLANZapine [ZyPREXA] 1 tab PO QID 08/15/18 [History] Potassium Chloride [Klor-Con M20] 20 meq PO BID 08/15/18 [History] Topiramate [Topamax] 250 mg PO BID 08/15/18 [History] cloZAPine [Clozapine Odt] 200 mg PO DAILY 08/15/18 [History] clonazePAM [Klonopin] 1 tab PO BID 08/15/18 [History] - Discharge Summary/Plan Comment DC Time >30 min.: No - General Info Date of Service: 08/19/18 Subjective Update: Patient is feeling well this morning. He has been eating well with his soft diet. He denies any abdominal pain, nausea, or vomiting. He is prepared for dismissal back to the care center today. - Review of Systems General: Reports: No Symptoms HEENT: Reports: No Symptoms Pulmonary: Reports: No Symptoms Cardiovascular: Reports: No Symptoms Gastrointestinal: Reports: No Symptoms Genitourinary: Reports: No Symptoms Musculoskeletal: Reports: No Symptoms Skin: Reports: No Symptoms Neurological: Reports: No Symptoms - Patient Data Vitals - Most Recent: Last Vital Signs Temp 36.5 C 08/19/18 06:00 Pulse 100 08/19/18 06:00 Resp 16 08/19/18 06:00 BP 101/56 L 08/19/18 06:00 Pulse Ox 95 08/19/18 06:00 Weight - Most Recent: 76.476 kg I&O - Last 24 hours: Intake & Output 08/18/18 08/19/18 08/19/18 22:59 06:59 14:59 Intake Total 05291 120 Output Total 1400 900 450 Balance 15416 -780 -450 Lab Results - Last 24 hrs: Laboratory Results - last 24 hr 08/19/18 Range/Units 06:25 Sodium 138 (136-145) mmol/L Potassium 3.2 L (3.5-5.1) mmol/L Chloride 102 (98-107) mmol/L Carbon Dioxide 25 (21-32) mmol/L Anion Gap 14.2 (10-20) mmol/L BUN 9 (7-18) mg/dL Creatinine 0.9 (0.70-1.30) mg/dL Est Cr Clr Drug Dosing 93.19 mL/min Estimated GFR (MDRD) > 60 Glucose 103 (74-106) mg/dL Calcium 7.1 L (8.5-10.1) mg/dL Med Orders - Current: Current Medications Albuterol (Proventil Neb Soln) 2.5 mg INH Q6H PRN PRN Reason: wheezing Cholestyramine Resin (Prevalite Packet) 4 gm PO TIDAC [facility] Last Admin: 08/19/18 06:47 Dose: Not Given Clonazepam (Klonopin) 1 mg NGTUBE BID [facility] Last Admin: 08/19/18 07:24 Dose: 1 mg Heparin Sodium (Porcine) (Heparin Sodium) 5,000 units SUBCUT Q8H [facility] Last Admin: 08/19/18 06:42 Dose: 5,000 units Midodrine (Midodrine) 5 mg NGTUBE BIDAC [facility] Last Admin: 08/19/18 06:42 Dose: 5 mg Clozapine 200mg 0 mg PO BID [facility] Last Admin: 08/19/18 07:23 Dose: 200 mg Fluoxetine. 40mg ( (Own Supply)) 1 tab PO DAILY [facility] Last Admin: 08/19/18 07:23 Dose: 1 tab Clozapine 100mg 0 mg PO BEDTIME [facility] Last Admin: 08/18/18 20:29 Dose: 100 mg Olanzapine (Zyprexa) 10 mg NGTUBE QID [facility] Last Admin: 08/19/18 07:24 Dose: 10 mg Potassium Chloride (Klor-Con 10) 10 meq PO BIDMEALS [facility] Last Admin: 08/19/18 07:26 Dose: 10 meq Fluticasone/Salmeterol (Fluticasone-Salmeterol 113-14 Mcg Powder Inh) 0 puff INH BID [facility] Last Admin: 08/19/18 07:24 Dose: 1 puff Sodium Chloride ([place] Nasal [place]) 0 ml CATHRYN BID PRN PRN Reason: Rash Sodium Chloride (Saline Flush) 10 ml IV ASDIRECTED PRN PRN Reason: Keep Vein Open Last Admin: 08/18/18 22:11 Dose: 10 ml Topiramate (Topamax) 250 mg NGTUBE BID [facility] Last Admin: 08/19/18 07:25 Dose: 250 mg Discontinued Medications Heparin Sodium (Porcine) (Heparin Sodium) 5,000 units SUBCUT Q8H [facility] Last Admin: 08/18/18 03:20 Dose: Not Given Lactated Ringer's (Ringers, Lactated) 1,000 mls @ 250 mls/hr IV ASDIRECTED [facility] Last Admin: 08/16/18 03:03 Dose: 250 mls/hr Lactated Ringer's (Ringers, Lactated) 1,000 mls @ 250 mls/hr IV ASDIRECTED [facility] Stop: 08/16/18 12:46 Last Admin: 08/16/18 09:30 Dose: 250 mls/hr Lactated Ringer's (Ringers, Lactated) 1,000 mls @ 125 mls/hr IV ASDIRECTED [facility] Last Admin: 08/18/18 05:52 Dose: 125 mls/hr Ondansetron HCl (Zofran) 4 mg IVPUSH ONETIME [facility] Stop: 08/18/18 21:53 Last Admin: 08/18/18 22:09 Dose: 4 mg Potassium Chloride (Potassium Chloride Solution) 20 meq PO BID [facility] Last Admin: 08/18/18 08:12 Dose: 20 meq - Exam General: Reports: Alert, Cooperative, No Acute Distress HEENT: Reports: Mucous Membr. Moist/[place] Neck: Reports: Supple, Trachea Midline, No Thyromegaly. Denies: Lymphadenopathy Lungs: Reports: Clear to Auscultation, Normal Respiratory Effort Cardiovascular: Reports: Regular Rate, Regular Rhythm GI/Abdominal Exam: Normal Bowel Sounds, Soft, Non-Tender, No Organomegaly, No Distention, No Mass Extremities: Non-Tender, No Pedal Edema, Normal Capillary Refill Skin: Reports: Warm, Dry, Intact *Q Meaningful Use (DIS) - VTE *Q VTE Anticoagulation Contraindications: Med/TX Not Indicated/Need
== END 2018-08-19 10:20 | DRG 683 ==
LOC: VM.MS 16:35
PROVIDERS: ADMIT Family Medicine; ATTEND Family Medicine
DX: N17.9 Acute kidney failure, unspecified (principal); K56.600 Partial intestinal obstruction, unspecified as to cause; R33.9 Retention of urine, unspecified; Z66 Do not resuscitate; F25.9 Schizoaffective disorder, unspecified; I95.0 Idiopathic hypotension; J45.40 Moderate persistent asthma, uncomplicated; E20.0 Idiopathic hypoparathyroidism; E03.9 Hypothyroidism, unspecified; G47.30 Sleep apnea, unspecified; K21.9 Gastro-esophageal reflux disease without esophagitis; G89.4 Chronic pain syndrome; F03.90 Unspecified dementia, unspecified severity, without behavioral disturbance, psychotic disturbance, mood disturbance, and anxiety; F41.9 Anxiety disorder, unspecified; F32.9 Major depressive disorder, single episode, unspecified; E55.9 Vitamin D deficiency, unspecified; I95.9 Hypotension, unspecified; G40.909 Epilepsy, unspecified, not intractable, without status epilepticus; Z93.2 Ileostomy status; Z90.49 Acquired absence of other specified parts of digestive tract
CPT/HCPCS: 36415; 71045; 80048; 83605; 85025; A9270-GY; J1644; J2405; J7120

== ENCOUNTER 2018-10-07 15:46 | Inpatient (IN) | payer MEDICARE, MEDICAID ==
[2018-10-07] MEDS ORDERED: Sodium Chloride 0.9% 10 ML Syringe FLUSH PRN (17:26)
[2018-10-07] MEDS ORDERED: Acetaminophen 325 MG Tab PO PRN (17:27)
[2018-10-07] MEDS ORDERED: Albuterol 0.083% 2.5 MG/3 ML Neb Soln INH PRN (17:27)
--- NOTE | 2018-10-07 17:44 | PCM.HP ---
H&P History of Present Illness - General Date of Service: 10/07/18 Admit Problem/Dx: Admission Diagnosis/Problem Admission Diagnosis/Problem Small bowel obstruction Source of Information: Patient, Skilled Nursing Records History Limitations: Reports: Altered Mental Status (limited by mental status) - History of Present Illness Initial Comments - Free Text/Narative: Mr. Mcdaniel is a 37 yo male with history of recurrent small bowel obstructions who presented to clinic today for evaluation of abdominal pain x 1-2 days. Associated with decreased ostomy output, abdominal distension, nausea, and vomiting. Has continued to pass gas through his ostomy. Has also had a fever with Tmax of 100.3 this morning. Overall has not been eating as well and has been more weak than usual. Is voiding without any issues. He was hospitalized in April in [place] for the same problem and then here again in August. Both times he was treated successfully with bowel rest and an NG tube. - Related Data Allergies/Adverse Reactions: Allergies Allergy/AdvReac Type Severity Reaction Status Date / Time No Known Allergies Allergy Verified 10/07/18 17:15 Home Medications: Home Meds Acetaminophen [Tylenol] 2 tab PO DAILY PRN 08/15/18 [History] Acetaminophen [Tylenol] 2 tab PO TID 08/15/18 [History] Albuterol Sulfate [Proventil Hfa] 2 puff INH Q6HR PRN 08/15/18 [History] Aloe Vera/Sodium Chloride [[place] Saline Nasal Gel] 2 spray CATHRYN BID PRN 08/15/18 [ History] Calcitriol 1 cap PO DAILY 08/15/18 [History] Calcium Citrate/Vitamin D3 [Calcium Citrate - Vit D Tablet] 1 tab PO TID [History] Cholecalciferol (Vitamin D3) [Vitamin D3] 1 tab PO DAILY 08/15/18 [History] Cholestyramine/Sucrose [Cholestyramine] 1 packet PO TID 08/15/18 [History] Clindamycin Phos/Benzoyl Perox [Clindamycin-Benzoyl Perox 1-5%] 1 applic TOP BID 08/15/18 [History] Fluticasone/Salmeterol [Advair 250-50] 1 puff INH BID 08/15/18 [History] Lactobacillus Rhamnosus GG [Culturelle] 1 cap PO BID 08/15/18 [History] Levothyroxine 25 mcg PO DAILY 08/15/18 [History] Magnesium Chloride [Mag-64] 2 tab PO TID 08/15/18 [History] Midodrine 1 tab PO BID 08/15/18 [History] Multivitamin with Minerals [Multivitamins with Minerals] 1 tab PO DAILY [History] Nystatin [Nyamyc] 1 applic TOP BID PRN 08/15/18 [History] OLANZapine [ZyPREXA] 1 tab PO QID 08/15/18 [History] Potassium Chloride [Klor-Con M20] 20 meq PO BID 08/15/18 [History] Topiramate [Topamax] 250 mg PO BID 08/15/18 [History] clonazePAM [Klonopin] 1 tab PO BID 08/15/18 [History] FLUoxetine HCl [Prozac] 40 mg PO DAILY 10/07/18 [History] cloZAPine [Clozaril] 300 mg PO BID 10/07/18 [History] Past Medical History HEENT History: Reports: None Cardiovascular History: Reports: Other (See Below) Other Cardiovascular History: hypotension Respiratory History: Reports: Asthma, Sleep Apnea Other Respiratory History: acute respiratory failure Gastrointestinal History: Reports: Bowel Obstruction, Chronic Diarrhea, GERD, Other (See Below) Other Gastrointestinal History: ileostomy Genitourinary History: Reports: None Musculoskeletal History: Reports: Other (See Below) Other Musculoskeletal History: chronic pain syndrome. muscle weakness Neurological History: Reports: Brain Injury, Seizure, Other (See Below) Other Neuro History: dysphonia. dementia Psychiatric History: Reports: Anxiety, Depression, OCD, Schizophrenia Endocrine/Metabolic History: Reports: Hypoparathyroidism, Hypothyroidism, Vitamin D Deficiency Hematologic History: Reports: Other (See Below) Other Hematologic History: thrombocytopenia. vit D deficiency. hypomagnesium. hypocalcemia Immunologic History: Reports: None Oncologic (Cancer) History: Reports: None Dermatologic History: Reports: None - Infectious Disease History Infectious Disease History: Reports: None - Past Surgical History HEENT Surgical History: Reports: Oral Surgery, Tonsillectomy GI Surgical History: Reports: Appendectomy, Cholecystectomy, Colon, Hernia Repair/Other, Other (See Below) Other GI Surgeries/Procedures: ileostomy Musculoskeletal Surgical History: Reports: Arthroscopic Knee, ORIF Social & Family History - Family History Family Medical History: Unobtainable - Tobacco Use Smoking Status *Q: Never Smoker - Caffeine Use Caffeine Use: Reports: Coffee - Alcohol Use Alcohol Use History: No Alcohol Use in Last Twelve Months: No - Recreational Drug Use Recreational Drug Use: No - Living Situation & Occupation Living situation: Reports: Single, Extended Care Facility Occupation: Disabled H&P Review of Systems - Review of Systems: Review Of Systems: See Below General: Reports: Fever, Weakness HEENT: Reports: No Symptoms Pulmonary: Reports: No Symptoms Cardiovascular: Reports: No Symptoms Gastrointestinal: Reports: Abdominal Pain, Nausea, Vomiting Genitourinary: Reports: No Symptoms Musculoskeletal: Reports: No Symptoms Skin: Reports: No Symptoms Psychiatric: Reports: No Symptoms Neurological: Reports: No Symptoms Exam - Exam Exam: See Below - Vital Signs Vital Signs: Last Vital Signs Temp 36.7 C 10/07/18 16:35 Pulse 105 H 10/07/18 16:35 Resp BP 82/53 L 10/07/18 16:35 Pulse Ox 98 10/07/18 16:35 Weight: 75.841 kg - Exam General: Alert, Cooperative HEENT: Conjunctiva Clear, Mucosa Moist & [place], Posterior Pharynx Clear, Pupils Equal, TMs Clear Neck: Supple, Trachea Midline. No: Lymphadenopathy, Thyromegaly Lungs: Clear to Auscultation, Normal Respiratory Effort Cardiovascular: Regular Rate, Regular Rhythm, Normal S1, Normal S2 GI/Abdominal Exam: Soft, Distended, Tender (diffusely but without any rebound, rigidity, or guarding), Abnormal Bowel Sounds (hypoactive throughout) Extremities: Normal Inspection, Non-Tender, No Pedal Edema, Normal Capillary Refill Peripheral Pulses: 2+: Radial (L), Radial (R) Skin: Warm, Dry, Intact - Problem List (1) SBO (small bowel obstruction) SNOMED Code(s): 356718845 ICD Code: K56.609 - UNSP INTESTNL OBST, UNSP TO PARTIAL VERSUS COMPLETE OBST Status: Acute Current Visit: No (2) Dehydration SNOMED Code(s): 29493391 ICD Code: E86.0 - DEHYDRATION Status: Acute Current Visit: No (3) Acute renal failure SNOMED Code(s): 64914403 ICD Code: N17.9 - ACUTE KIDNEY FAILURE, UNSPECIFIED Status: Acute Current Visit: No Qualifiers: Acute renal failure type: unspecified Qualified Code(s): N17.9 - Acute kidney failure, unspecified (4) Hyperkalemia SNOMED Code(s): 58997597 ICD Code: E87.5 - HYPERKALEMIA Status: Acute Current Visit: Yes (5) Leukocytosis SNOMED Code(s): 893160086, 956917878 ICD Code: D72.829 - ELEVATED WHITE BLOOD CELL COUNT, UNSPECIFIED Status: Acute Current Visit: Yes (6) High output ileostomy SNOMED Code(s): 102288245 ICD Code: R19.8 - OTH SYMPTOMS AND SIGNS INVOLVING THE DGSTV SYS AND ABDOMEN ; Z93.2 - ILEOSTOMY STATUS Status: Chronic Current Visit: No (7) Schizoaffective disorder SNOMED Code(s): 68043540 ICD Code: F25.9 - SCHIZOAFFECTIVE DISORDER, UNSPECIFIED Status: Chronic Current Visit: No Qualifiers: Schizoaffective disorder type: unspecified Qualified Code(s): F25.9 - Schizoaffective disorder, unspecified (8) Hypotension SNOMED Code(s): 95888040 ICD Code: I95.9 - HYPOTENSION, UNSPECIFIED Status: Chronic Current Visit : No Qualifiers: Hypotension type: idiopathic hypotension Qualified Code(s): I95.0 - Idiopathic hypotension (9) Seizure disorder SNOMED Code(s): 779214084 ICD Code: G40.909 - EPILEPSY, UNSP, NOT INTRACTABLE, WITHOUT STATUS EPILEPTICUS Status: Chronic Current Visit: No (10) Asthma SNOMED Code(s): 459052396 ICD Code: J45.909 - UNSPECIFIED ASTHMA, UNCOMPLICATED Status: Chronic Current Visit: No Qualifiers: Asthma severity: moderate Asthma persistence: persistent Asthma complication type: uncomplicated Qualified Code(s): J45.40 - Moderate persistent asthma, uncomplicated (11) Hypoparathyroidism SNOMED Code(s): 14667754 ICD Code: E20.9 - HYPOPARATHYROIDISM, UNSPECIFIED Status: Chronic Current Visit: No Qualifiers: Hypoparathyroidism type: idiopathic Qualified Code(s): E20.0 - Idiopathic hypoparathyroidism (12) Hypothyroidism SNOMED Code(s): 41509770 ICD Code: E03.9 - HYPOTHYROIDISM, UNSPECIFIED Status: Chronic Current Visit: No Problem List Initiated/Reviewed/Updated: Yes Orders Last 24hrs: Active Orders 24 hr Category Date Time Status Patient Status [ADT] Routine ADT 10/07/18 16:35 Active Communication Order [RC] ROUTINE Care 10/07/18 17:27 Ordered Gastrointestinal Tube Mgmt [RC] 08,20 Care 10/07/18 16:37 Active Notify Provider Vital Signs [RC] 06,10,14,18,22,02 Care 10/07/18 16:36 Active Oxygen Therapy [RC] .PRN Care 10/07/18 16:35 Active Up With Assistance [RC] 08,20 Care 10/07/18 16:35 Active Vital Signs [RC] 06,10,14,18,22,02 Care 10/07/18 16:35 Active Nothing per Oral Now Diet [DIET] Diet 10/07/18 Dinner Active BASIC METABOLIC PANEL,BMP [CHEM] Routine Lab 10/08/18 05:11 Ordered CBC WITH AUTO DIFF [HEME] Routine Lab 10/08/18 05:11 Ordered CULTURE MRSA SURVEY [RM] Routine Lab 10/07/18 16:40 Ordered LACTIC ACID [CHEM] Routine Lab 10/08/18 05:11 Ordered Acetaminophen [Tylenol] Med 10/07/18 17:27 Ordered 650 mg PO DAILY PRN Acetaminophen [Tylenol] Med 10/07/18 20:00 Ordered 650 mg PO TID Albuterol [Take Home: Albuterol 6.7 GM, 1 INH Pack] Med 10/07/18 17:27 Ordered 2 puff INH Q6HR PRN FLUoxetine [PROzac] Med 10/08/18 08:00 Ordered 40 mg PO DAILY Fluticasone/Salmeterol [Advair 250-50] Med 10/07/18 20:00 Ordered 1 puff INH BID Lactated Ringers [Ringers, Lactated] 1,000 ml Med 10/07/18 16:45 Active IV ASDIRECTED Midodrine [Midodrine] Med 10/07/18 20:00 Ordered 1 tab PO BID OLANZapine [ZyPREXA] Med 10/07/18 20:00 Ordered 10 mg PO QID Sodium Chloride 0.9% [Saline Flush] Med 10/07/18 17:26 Ordered 10 ml FLUSH ASDIRECTED PRN Topiramate [Topamax] Med 10/07/18 20:00 Ordered 250 mg PO BID cloZAPine Med 10/07/18 20:00 Ordered 300 mg PO BID clonazePAM [Klonopin] Med 10/07/18 20:00 Ordered 1 tab PO BID NG [Nasogastric Orogastric Tube Insertion] [OM.PC] Oth 10/07/18 16:37 Ordered Routine Peripheral IV Insertion Adult [OM.PC] Routine Oth 10/07/18 17:26 Ordered Resuscitation Status Routine Resus Stat 10/07/18 16:35 Ordered Medication Orders Acetaminophen (Tylenol) 650 mg PO DAILY PRN PRN Reason: Pain Acetaminophen (Tylenol) 650 mg PO TID BENJI Albuterol (Take Home: Albuterol 6.7 Gm, 1 Inh Pack) packet INH Q6HR PRN PRN Reason: wheezing Fluoxetine HCl (Prozac) 40 mg PO DAILY BENJI Lactated Ringer's (Ringers, Lactated) 1,000 mls @ 200 mls/hr IV ASDIRECTED BENJI Non-Formulary Medication (Clonazepam [Klonopin]) 1 tab PO BID BENJI Non-Formulary Medication (Clozapine) 300 mg PO BID BENJI Non-Formulary Medication (Fluticasone/Salmeterol [Advair 250-50]) 1 puff INH BID BENJI Non-Formulary Medication (Midodrine [Midodrine]) 1 tab PO BID BENJI Non-Formulary Medication (Topiramate [Topamax]) 250 mg PO BID BENJI Olanzapine (Zyprexa) 10 mg PO QID BENJI Sodium Chloride (Saline Flush) 10 ml FLUSH ASDIRECTED PRN PRN Reason: Keep Vein Open Assessment/Plan Comment:: 37 yo male admitted with recurrent SBO after presenting to clinic for evaluation of abdominal pain, nausea, vomiting, and fever. #1 Small Bowel Obstruction - Diagnosed clinically given symptoms and patient's history of the same. - Imaging not obtained as this is not likely to roving changer. Will reconsider if he does not improve with conservative management. - He has done well with conservative cares in the past; despite early recurrence of symptoms, will trial at least 48 hours of conservative care again now. Parents understandably really not interested in pursuing surgery for him. - NG tube to be inserted by nursing staff and placed on LIS. He is on psychiatric medications that do not all have IV replacements; therefore, he will receive his medications that are absolutely necessary and his NG tube will be clamped for 30 minutes afterward. If he does not tolerate this, we may need to hold PO medications and make do with IV replacements. - IV fluids as below. - NPO. - Will check lactic in the am along with other labs. #2 Dehydration #3 Acute Renal Failure, secondary to #2 #4 Hyperkalemia, secondary to #2 #5 Leukocytosis, secondary to #2 - LR @ 200 cc/hr overnight. Will reassess fluid rate in the am. - Recheck labs tomorrow. #6 High output ileostomy - Hold fiber until SBO is resolved. #7 Schizoaffective disorder #8 Idiopathic hypotension #9 Seizure disorder #10 Asthma #11 Hypoparathyroidism #12 Hypothyroidism - Continue only medications that are absolutely essential or are given by another route than PO. - Will add back medications as able. Patient will be admitted to acute as it is anticipated he will require >48 hours of admission for discharge criteria to be met. NG tube, IV fluids, NPO. Otherwise see details as above. Recheck labs in the am. Will hold off on pharmacologic VTE prophylaxis given chronic thrombocytopenia and the fact that he is at his usual baseline. Code status is DNR/DNI. Parents actually in town visiting and at the patient's bedside this afternoon. Updates given on his diagnosis and plan for treatment. Code status and preference to avoid surgery if at all possible confirmed.
[2018-10-07] MEDS: Lactated Ringers 1,000 ML IV SCH ×2 (18:02→23:00)
[2018-10-07] MEDS: CLOZAPINE 100 MG PO SCH (19:56)
[2018-10-07] MEDS: Fluticasone-Salmeterol 113-14 MCG Powder Inhalant INH SCH (19:57)
[2018-10-07] MEDS: ClonazePAM 0.5 MG Tab PO SCH (19:58)
[2018-10-07] MEDS: Midodrine 2.5 MG Tab PO SCH (19:58)
[2018-10-07] MEDS: Topiramate 50 MG Tab PO SCH (19:59)
[2018-10-07] MEDS: CLOZAPINE 200 MG PO SCH (19:59)
[2018-10-07] MEDS: Acetaminophen 325 MG Tab PO SCH (20:00)
[2018-10-07] MEDS: OLANZapine 10 MG Tab PO SCH (20:02)
[2018-10-07] MEDS ORDERED: Ondansetron 4 MG/2 ML SDV IVPUSH PRN (21:56)
[2018-10-08] MEDS: Lactated Ringers 1,000 ML IV SCH ×2 (03:53→08:38)
[2018-10-08 07:07] LABS: ANION GAP 16.8 mmol/L (10-20)
[2018-10-08] MEDS: Midodrine 2.5 MG Tab PO SCH ×2 (07:32→19:15)
[2018-10-08] MEDS: Acetaminophen 325 MG Tab PO SCH ×3 (07:32→19:17)
[2018-10-08] MEDS: Topiramate 50 MG Tab PO SCH ×2 (07:32→19:16)
[2018-10-08] MEDS: FLUoxetine 20 MG Cap PO SCH (07:33)
[2018-10-08] MEDS: OLANZapine 10 MG Tab PO SCH ×4 (07:33→19:17)
[2018-10-08] MEDS: ClonazePAM 0.5 MG Tab PO SCH ×2 (07:33→19:17)
[2018-10-08] MEDS: CLOZAPINE 100 MG PO SCH ×2 (07:34→19:20)
[2018-10-08] MEDS: Fluticasone-Salmeterol 113-14 MCG Powder Inhalant INH SCH ×2 (07:36→19:21)
[2018-10-08] MEDS: CLOZAPINE 200 MG PO SCH ×2 (07:37→19:20)
--- NOTE | 2018-10-08 07:58 | PCM.PN ---
- General Info Date of Service: 10/08/18 Subjective Update: 37 yo male hospital day #2 admitted with small bowel obstruction. Patient states he slept well overnight. States his abdomen is feeling much better today and is wondering if he can have a soda. Denies any current abdominal pain. Has not vomited since admission. Ostomy output still mainly water. No fever. RN notes patient did not void until 2 am. He has tolerated the NG tube clamping for med administration without any issues. - Review of Systems General: Reports: No Symptoms HEENT: Reports: No Symptoms Pulmonary: Reports: No Symptoms Cardiovascular: Reports: No Symptoms Gastrointestinal: Reports: No Symptoms Genitourinary: Reports: No Symptoms Musculoskeletal: Reports: No Symptoms Skin: Reports: No Symptoms Neurological: Reports: No Symptoms - Patient Data Vitals - Most Recent: Last Vital Signs Temp 36.7 C 10/08/18 05:52 Pulse 98 10/08/18 05:52 Resp 16 10/08/18 05:52 BP 99/66 10/08/18 05:52 Pulse Ox 94 L 10/08/18 05:52 Weight - Most Recent: 75.841 kg I&O - Last 24 Hours: Intake & Output 10/07/18 10/08/18 10/08/18 22:59 06:59 14:59 Intake Total 0 2460 Output Total 1200 1100 Balance -1200 1360 Lab Results Last 24 Hours: Laboratory Results - last 24 hr 10/08/18 10/08/18 10/08/18 Range/Units 06:31 06:31 06:31 WBC 9.7 (4.0-10.0) x10^3/uL RBC 4.95 (4.5-6.0) x10^6/uL Hgb 14.1 D (14.0-18.0) g/dL Hct 42.1 (40.0-52.0) % MCV 85.1 (78.0-93.0) fL MCH 28.5 (26.0-32.0) pg MCHC 33.5 (32.0-36.0) g/dL RDW Coeff of Shyann 15.9 H (10.0-15.0) % Plt Count 145 (130-400) x10^3/uL Neut % (Auto) 59.6 (50.0-80.0) % Lymph % (Auto) 23.1 L (25.0-50.0) % [place] % (Auto) 15.2 H (2.0-11.0) % Eos % (Auto) 1.8 (0.0-4.0) % Baso % (Auto) 0.3 (0.2-1.2) % Sodium 136 (136-145) mmol/L Potassium 3.8 (3.5-5.1) mmol/L Chloride 97 L (98-107) mmol/L Carbon Dioxide 26 (21-32) mmol/L Anion Gap 16.8 (10-20) mmol/L BUN 40 H D (7-18) mg/dL Creatinine 1.4 H (0.70-1.30) mg/dL Est Cr Clr Drug Dosing 59.90 mL/min Estimated GFR (MDRD) 57 Glucose 107 H (74-106) mg/dL Lactic Acid 1.4 (0.4-2.0) mmol/L Calcium 8.3 L (8.5-10.1) mg/dL Lucas Results Last 24 Hours: Microbiology 10/07/18 16:40 MRSA Surveillance Culture - Final Nares, Right (Mrsa) Staphylococcus Aureus Med Orders - Current: Current Medications Acetaminophen (Tylenol) 650 mg PO DAILY PRN PRN Reason: Pain Acetaminophen (Tylenol) 650 mg PO TID [facility] Last Admin: 10/08/18 07:32 Dose: 650 mg Albuterol (Proventil Neb Soln) 2.5 mg INH Q6HR PRN PRN Reason: wheezing Clonazepam (Klonopin) 1 mg PO BID [facility] Last Admin: 10/08/18 07:33 Dose: 1 mg Fluoxetine HCl (Prozac) 40 mg PO DAILY [facility] Last Admin: 10/08/18 07:33 Dose: 40 mg Lactated Ringer's (Ringers, Lactated) 1,000 mls @ 200 mls/hr IV ASDIRECTED [facility] Last Admin: 10/08/18 03:53 Dose: 200 mls/hr Midodrine (Midodrine) 5 mg PO BID [facility] Last Admin: 10/08/18 07:32 Dose: 5 mg Clozapine 100 Mg # (Own Med#) 100 mg PO BID [facility] Last Admin: 10/08/18 07:34 Dose: 100 mg Clozapine 200mg #Own (Med#) 0 each PO BID [facility] Last Admin: 10/08/18 07:37 Dose: 1 each Olanzapine (Zyprexa) 10 mg PO QID [facility] Last Admin: 10/08/18 07:33 Dose: 10 mg Ondansetron HCl (Zofran) 4 mg IVPUSH Q8H PRN PRN Reason: Nausea Fluticasone/Salmeterol (Fluticasone-Salmeterol 113-14 Mcg Powder Inh) 1 puff INH BID [facility] Last Admin: 10/08/18 07:36 Dose: 1 inh Sodium Chloride (Saline Flush) 10 ml FLUSH ASDIRECTED PRN PRN Reason: Keep Vein Open Topiramate (Topamax) 250 mg PO BID [facility] Last Admin: 10/08/18 07:32 Dose: 250 mg - Exam General: Alert, Cooperative, No Acute Distress HEENT: Mucous Membr. Moist/[place] Neck: Supple, Trachea Midline, No Thyromegaly. No: Lymphadenopathy Lungs: Clear to Auscultation, Normal Respiratory Effort Cardiovascular: Regular Rate, Regular Rhythm, No Murmurs GI/Abdominal Exam: Soft, Distended, Tender (mild diffuse tenderness without rebound, rigidity, or guarding), Abnormal Bowel Sounds (hypoactive) Peripheral Pulses: 2+: Radial (L), Radial (R) Skin: Warm, Dry, Intact - Problem List & Annotations (1) SBO (small bowel obstruction) SNOMED Code(s): 039729527 Code(s): K56.609 - UNSP INTESTNL OBST, UNSP TO PARTIAL VERSUS COMPLETE OBST Status: Acute Current Visit: No (2) Dehydration SNOMED Code(s): 61149626 Code(s): E86.0 - DEHYDRATION Status: Acute Current Visit: No (3) Acute renal failure SNOMED Code(s): 27423808 Code(s): N17.9 - ACUTE KIDNEY FAILURE, UNSPECIFIED Status: Acute Current Visit: No Qualifiers: Acute renal failure type: unspecified Qualified Code(s): N17.9 - Acute kidney failure, unspecified (4) Hyperkalemia SNOMED Code(s): 10488176 Code(s): E87.5 - HYPERKALEMIA Status: Acute Current Visit: Yes (5) Leukocytosis SNOMED Code(s): 917477704, 071998212 Code(s): D72.829 - ELEVATED WHITE BLOOD CELL COUNT, UNSPECIFIED Status: Acute Current Visit: Yes (6) High output ileostomy SNOMED Code(s): 823618302 Code(s): R19.8 - OTH SYMPTOMS AND SIGNS INVOLVING THE DGSTV SYS AND ABDOMEN; Z93.2 - ILEOSTOMY STATUS Status: Chronic Current Visit: No (7) Schizoaffective disorder SNOMED Code(s): 36340718 Code(s): F25.9 - SCHIZOAFFECTIVE DISORDER, UNSPECIFIED Status: Chronic Current Visit: No Qualifiers: Schizoaffective disorder type: unspecified Qualified Code(s): F25.9 - Schizoaffective disorder, unspecified (8) Hypotension SNOMED Code(s): 72318741 Code(s): I95.9 - HYPOTENSION, UNSPECIFIED Status: Chronic Current Visit: No Qualifiers: Hypotension type: idiopathic hypotension Qualified Code(s): I95.0 - Idiopathic hypotension (9) Seizure disorder SNOMED Code(s): 784082813 Code(s): G40.909 - EPILEPSY, UNSP, NOT INTRACTABLE, WITHOUT STATUS EPILEPTICUS Status: Chronic Current Visit: No (10) Asthma SNOMED Code(s): 122246418 Code(s): J45.909 - UNSPECIFIED ASTHMA, UNCOMPLICATED Status: Chronic Current Visit: No Qualifiers: Asthma severity: moderate Asthma persistence: persistent Asthma complication type: uncomplicated Qualified Code(s): J45.40 - Moderate persistent asthma, uncomplicated (11) Hypoparathyroidism SNOMED Code(s): 07045767 Code(s): E20.9 - HYPOPARATHYROIDISM, UNSPECIFIED Status: Chronic Current Visit: No Qualifiers: Hypoparathyroidism type: idiopathic Qualified Code(s): E20.0 - Idiopathic hypoparathyroidism (12) Hypothyroidism SNOMED Code(s): 69692396 Code(s): E03.9 - HYPOTHYROIDISM, UNSPECIFIED Status: Chronic Current Visit: No - Problem List Review Problem List Initiated/Reviewed/Updated: Yes - My Orders Last 24 Hours: My Active Orders 10/07/18 16:35 Patient Status [ADT] Routine Oxygen Therapy [RC] .PRN Up With Assistance [RC] 08,20 Vital Signs [RC] 06,10,14,18,22,02 Resuscitation Status Routine 10/07/18 16:36 Notify Provider Vital Signs [RC] 06,10,14,18,22,02 10/07/18 16:37 Gastrointestinal Tube Mgmt [RC] 08,20 NG [Nasogastric Orogastric Tube Insertion] [OM.PC] Routine 10/07/18 16:45 Lactated Ringers [Ringers, Lactated] 1,000 ml IV ASDIRECTED 10/07/18 17:26 Sodium Chloride 0.9% [Saline Flush] 10 ml FLUSH ASDIRECTED PRN Peripheral IV Insertion Adult [OM.PC] Routine 10/07/18 17:27 Communication Order [RC] 08,20 Acetaminophen [Tylenol] 650 mg PO DAILY PRN Albuterol [Proventil Neb Soln] 2.5 mg INH Q6HR PRN 10/07/18 20:00 Acetaminophen [Tylenol] 650 mg PO TID ClonazePAM [KlonoPIN] 1 mg PO BID Fluticasone/Salmeterol [Fluticasone-Salmeterol 113-14 MCG Powder Inh] 1 puff INH BID Midodrine 5 mg PO BID Non-Formulary Medication [NF Drug] 0 each PO BID OLANZapine [ZyPREXA] 10 mg PO QID Topiramate [Topamax] 250 mg PO BID cloZAPine 100 mg PO BID 10/07/18 21:56 Ondansetron [Zofran] 4 mg IVPUSH Q8H PRN 10/07/18 Dinner Nothing per Oral Now Diet [DIET] 10/08/18 08:00 FLUoxetine [PROzac] 40 mg PO DAILY - Assessment Assessment:: 37 yo male admitted with recurrent small bowel obstruction. Doing somewhat better today but still with mainly liquid ostomy output. Labs improved compared to yesterday. - Plan Plan:: 37 yo male admitted with recurrent SBO after presenting to clinic for evaluation of abdominal pain, nausea, vomiting, and fever. #1 Small Bowel Obstruction - Diagnosed clinically given symptoms and patient's history of the same. Is somewhat improved today but his ostomy output is still only liquid. Lactic normal this morning. - Imaging not obtained as this is not likely to change management administrator. Will reconsider if he does not improve with conservative management. - Continue NG tube to LIS. Continue to clamp NG tube for 30 minutes for medication administration. - IV fluids as below. - NPO for now. He can do mouth swabs. Will reassess later this morning to determine whether we can do a trial of NG tube clamping longer than 30 minutes. #2 Dehydration #3 Acute Renal Failure, secondary to #2 #4 Hyperkalemia, secondary to #2, resolved #5 Leukocytosis, secondary to #2, resolved - Labs looking much better this morning. - Will decrease fluid rate to 150 cc/hr. - Recheck labs in the am. #6 High output ileostomy - Hold fiber until SBO is resolved. #7 Schizoaffective disorder #8 Idiopathic hypotension #9 Seizure disorder #10 Asthma #11 Hypoparathyroidism #12 Hypothyroidism - Continue only medications that are absolutely essential or are given by another route than PO. - Will add back medications as able. Patient will remain on acute today - anticipate he will be admitted for at least 2 more nights. NG tube, IV fluids, NPO. Otherwise see details as above. Recheck labs in the am. Will hold off on pharmacologic VTE prophylaxis given chronic thrombocytopenia and the fact that he is at his usual functional baseline. Code status is DNR/DNI - discussed with parents on admission.
[2018-10-08] MEDS: D5 1/2 NS w/ 10 mEq/L KCl 1,000 ML IV SCH ×2 (15:13→21:58)
[2018-10-09] MEDS: D5 1/2 NS w/ 10 mEq/L KCl 1,000 ML IV SCH (04:44)
[2018-10-09 06:48] LABS: CHLORIDE,CL 97 mmol/L (98-107); SODIUM,NA 135 mmol/L (136-145)
[2018-10-09 07:13] LABS: ANION GAP 12.8 mmol/L (10-20)
[2018-10-09] MEDS ORDERED: Potassium Chloride 20 MEQ Tab.ER PO ONE (07:30)
[2018-10-09] MEDS: Fluticasone-Salmeterol 113-14 MCG Powder Inhalant INH SCH ×2 (08:00→19:18)
[2018-10-09] MEDS: Topiramate 50 MG Tab PO SCH ×2 (08:00→19:15)
[2018-10-09] MEDS: Acetaminophen 325 MG Tab PO SCH ×3 (08:01→19:16)
[2018-10-09] MEDS: ClonazePAM 0.5 MG Tab PO SCH ×2 (08:03→19:16)
[2018-10-09] MEDS: FLUoxetine 20 MG Cap PO SCH (08:03)
[2018-10-09] MEDS: CLOZAPINE 100 MG PO SCH ×2 (08:04→19:18)
[2018-10-09] MEDS: Midodrine 2.5 MG Tab PO SCH ×2 (08:04→19:16)
[2018-10-09] MEDS: OLANZapine 10 MG Tab PO SCH ×4 (08:04→19:17)
[2018-10-09] MEDS: CLOZAPINE 200 MG PO SCH ×2 (08:04→19:18)
[2018-10-09] MEDS ORDERED: Magnesium Sulfate/Water 50 ML IV ONE (08:33)
[2018-10-09] MEDS: Enoxaparin 40 MG/0.4 ML Syringe SUBCUT SCH (08:59)
[2018-10-09] MEDS: NS + KCl 20mEq/L 1,000 ML IV SCH ×2 (09:10→23:45)
[2018-10-09] MEDS: Potassium Chloride 20 MEQ Tab.ER PO SCH (12:07)
--- NOTE | 2018-10-09 12:17 | PN ---
Progress Note for NADER NOLASCO Date: 10/09/2018 Room #: VM.218 SUBJECTIVE: This is hospital day #3 on a 37-year-old admitted with a small bowel obstruction. He has had problems with this in the past. He has been on the NG tube overnight. He had at least another 500 of output and had 800 yesterday during the day shift. He is feeling good. No abdominal pain. No nausea. He has been getting his pills through the NG and tolerating clamps for 30 minutes after that. He would really like to drink some Mountain Dew. He has not had any coughing. No breathing trouble. He has had increased output through his ostomy. Otherwise, he has been afebrile. OBJECTIVE: Vital Signs: Temperature is 98.7, pulse 84, blood pressure 91/61, respiratory rate 16, O2 of 94% on room air. General: He is in no acute distress. Heart: Regular rate and rhythm. S1, S2 without murmur. Lungs: Lung sounds are clear to auscultation bilaterally without crackles or wheezes. Abdomen: Nondistended. Positive bowel sounds. Soft and nontender. Extremities: Warm and dry. No edema. Mental Status: He is alert. He answers questions appropriately. He does have underlying schizophrenia, does want the door closed so that nobody comes in and shoots him. LABORATORY DATA: His lab work today does show white count 8.5, hemoglobin 12.7, platelets 120. Sodium 135, potassium 2.8, chloride 97, bicarb 28, BUN 22, creatinine 0.8, glucose 119, calcium 7.3, mag 1.6. ASSESSMENT AND PLAN: 1. Small bowel obstruction. The patient seems to be clinically improving. No indication for any x-rays. If he would worsen, we could do a X-rays or a CT , but he is a do not resuscitate, do not transfer per his primary care doctor, and we will continue with conservative treatment. We will clamp the NG tube and if he tolerates that, we will start him on a clear liquid diet later today and remove his tube if able. We will switch his fluids over to normal saline with 20 of KCl also and stop that as soon as he is tolerating some PO intake. 2. Hypokalemia. I will replace with 40 of oral potassium today and another dose later this afternoon. 3. Hypomagnesemia. We will replace IV and repeat lab work tomorrow. 4. Acute renal failure due to dehydration from small bowel obstruction. This has already resolved. 5. High output from his ostomy. He will need further IV hydration. His fiber is also on hold until the bowel obstruction has resolved. 6. Schizophrenia. 7. Idiopathic hypotension. He is on midodrine. 8. History of seizure disorder. He is on multiple medications which can be sedating. 9. Asthma. 10.Hypoparathyroidism and hypothyroidism. PLAN: At this point, we will continue his medications that have already been ordered. He will continue on acute cares with IV fluids, clamping the NG tube, and I anticipate he will be doing liquids later today. If he tolerates them, we will go ahead and remove the NG, which he is quite excited about. He is not having nausea but if he did we could consider some reglan. His DVT prophylaxis was held due to his chronic thrombocytopenia. However, at this point, I anticipate he will need at least another couple of nights stay. We will order Lovenox and repeat a CBC tomorrow. On-call provider to cover in round on the patient tomorrow. Anticipate he will be inpatient still until Sunday when I will resume care. MKA: 10/09/2018 11:50:16 MODL: 10/09/2018 12:12:43 /[id number] DEXTER
[2018-10-10 07:41] LABS: CHLORIDE,CL 103 mmol/L (98-107); SODIUM,NA 138 mmol/L (136-145)
[2018-10-10 07:42] LABS: ANION GAP 14.5 mmol/L (10-20)
[2018-10-10] MEDS: Enoxaparin 40 MG/0.4 ML Syringe SUBCUT SCH (07:57)
[2018-10-10] MEDS: Midodrine 2.5 MG Tab PO SCH ×2 (07:58→20:04)
[2018-10-10] MEDS: Topiramate 50 MG Tab PO SCH ×2 (07:59→20:03)
[2018-10-10] MEDS: ClonazePAM 0.5 MG Tab PO SCH ×2 (08:00→20:03)
[2018-10-10] MEDS: Potassium Chloride 20 MEQ Tab.ER PO SCH (08:00)
[2018-10-10] MEDS: FLUoxetine 20 MG Cap PO SCH (08:00)
[2018-10-10] MEDS: OLANZapine 10 MG Tab PO SCH ×4 (08:01→20:04)
[2018-10-10] MEDS: Acetaminophen 325 MG Tab PO SCH ×3 (08:01→20:05)
[2018-10-10] MEDS: CLOZAPINE 100 MG PO SCH ×2 (08:03→20:02)
[2018-10-10] MEDS: Fluticasone-Salmeterol 113-14 MCG Powder Inhalant INH SCH ×2 (08:03→20:02)
[2018-10-10] MEDS: CLOZAPINE 200 MG PO SCH ×2 (08:04→20:02)
--- NOTE | 2018-10-10 10:42 | PCM.PN ---
- General Info Date of Service: 10/10/18 Admission Dx/Problem (Free Text): Admission Diagnosis/Problem Admission Diagnosis/Problem Small bowel obstruction Subjective Update: 37 yo male hospital day #4 admitted with small bowel obstruction. Patient states he slept well overnight. States his abdomen continues to feel good and would like to eat lunch if possible. He tolerated oral liquids without difficulty. Denies any current abdominal pain. Has not vomited since admission. NG tube was removed yesterday and continues to have no concerns. Ostomy output has developed some form to the contents. No fever. Nursing states he slept well last night and has no major issues. - Review of Systems General: Reports: No Symptoms HEENT: Reports: No Symptoms Pulmonary: Reports: No Symptoms Cardiovascular: Reports: No Symptoms Gastrointestinal: Reports: No Symptoms Genitourinary: Reports: No Symptoms Musculoskeletal: Reports: No Symptoms Skin: Reports: No Symptoms Neurological: Reports: No Symptoms Psychiatric: Reports: No Symptoms - Patient Data Vitals - Most Recent: Last Vital Signs Temp 36.1 C 10/10/18 09:44 Pulse 98 10/10/18 09:44 Resp 16 10/10/18 09:44 BP 96/60 10/10/18 09:44 Pulse Ox 96 10/10/18 09:44 Weight - Most Recent: 75.841 kg I&O - Last 24 Hours: Intake & Output 10/09/18 10/10/18 10/10/18 22:59 06:59 14:59 Intake Total 1378 1061 420 Output Total 2320 600 Balance -942 461 420 Lab Results Last 24 Hours: Laboratory Results - last 24 hr 10/10/18 10/10/18 Range/Units 07:14 07:14 WBC 6.5 (4.0-10.0) x10^3/uL RBC 4.46 L (4.5-6.0) x10^6/uL Hgb 12.8 L (14.0-18.0) g/dL Hct 39.3 L (40.0-52.0) % MCV 88.1 (78.0-93.0) fL MCH 28.7 (26.0-32.0) pg MCHC 32.6 (32.0-36.0) g/dL RDW Coeff of Shyann 15.2 H (10.0-15.0) % Plt Count 93 L (130-400) x10^3/uL Neut % (Auto) 58.0 (50.0-80.0) % Lymph % (Auto) 26.7 (25.0-50.0) % [place] % (Auto) 11.9 H (2.0-11.0) % Eos % (Auto) 3.1 (0.0-4.0) % Baso % (Auto) 0.3 (0.2-1.2) % Sodium 138 (136-145) mmol/L Potassium 3.5 (3.5-5.1) mmol/L Chloride 103 (98-107) mmol/L Carbon Dioxide 24 (21-32) mmol/L Anion Gap 14.5 (10-20) mmol/L BUN 12 (7-18) mg/dL Creatinine 0.8 (0.70-1.30) mg/dL Est Cr Clr Drug Dosing 104.83 mL/min Estimated GFR (MDRD) > 60 Glucose 91 (74-106) mg/dL Calcium 7.5 L (8.5-10.1) mg/dL Med Orders - Current: Current Medications Acetaminophen (Tylenol) 650 mg PO DAILY PRN PRN Reason: Pain Acetaminophen (Tylenol) 650 mg PO TID [facility] Last Admin: 10/10/18 08:01 Dose: 650 mg Albuterol (Proventil Neb Soln) 2.5 mg INH Q6HR PRN PRN Reason: wheezing Clonazepam (Klonopin) 1 mg PO BID [facility] Last Admin: 10/10/18 08:00 Dose: 1 mg Enoxaparin Sodium (Lovenox) 40 mg SUBCUT Q24H [facility] Last Admin: 10/10/18 07:57 Dose: 40 mg Fluoxetine HCl (Prozac) 40 mg PO DAILY [facility] Last Admin: 10/10/18 08:00 Dose: 40 mg Potassium Chloride/Sodium Chloride (Normal Saline With 20 Meq Kcl) 1,000 mls @ 75 mls/hr IV ASDIRECTED [facility] Last Admin: 10/09/18 23:45 Dose: 75 mls/hr Midodrine (Midodrine) 5 mg PO BID [facility] Last Admin: 10/10/18 07:58 Dose: 5 mg Clozapine 100 Mg # (Own Med#) 100 mg PO BID [facility] Last Admin: 07/04/19 08:03 Dose: 100 mg Clozapine 200mg #Own (Med#) 0 each PO BID [facility] Last Admin: 10/10/18 08:04 Dose: 200 each Olanzapine (Zyprexa) 10 mg PO QID [facility] Last Admin: 10/10/18 08:01 Dose: 10 mg Ondansetron HCl (Zofran) 4 mg IVPUSH Q8H PRN PRN Reason: Nausea Potassium Chloride (Klor-Con M20) 40 meq PO DAILY [facility] Last Admin: 10/10/18 08:00 Dose: 40 meq Fluticasone/Salmeterol (Fluticasone-Salmeterol 113-14 Mcg Powder Inh) 1 puff INH BID [facility] Last Admin: 10/10/18 08:03 Dose: 1 inh Sodium Chloride (Saline Flush) 10 ml FLUSH ASDIRECTED PRN PRN Reason: Keep Vein Open Topiramate (Topamax) 250 mg PO BID [facility] Last Admin: 10/10/18 07:59 Dose: 250 mg Discontinued Medications Lactated Ringer's (Ringers, Lactated) 1,000 mls @ 150 mls/hr IV ASDIRECTED [facility] Last Admin: 10/08/18 08:38 Dose: 200 mls/hr Potassium Chloride/Dextrose/Sod Cl (D5 1/2 Ns W/ 10 Meq/L Kcl) 1,000 mls @ 150 mls/hr IV ASDIRECTED [facility] Last Admin: 10/09/18 04:44 Dose: 150 mls/hr Magnesium Sulfate (Magnesium Sulfate In Water Premix) 50 mls @ 50 mls/hr IV ONETIME ONE Stop: 10/09/18 09:32 Last Admin: 10/09/18 09:00 Dose: 50 mls/hr Potassium Chloride (Klor-Con M20) 40 meq PO ONETIME ONE Stop: 10/09/18 07:31 Last Admin: 10/09/18 08:02 Dose: 40 meq Potassium Chloride (Klor-Con M20) 40 meq PO DAILY [facility] - Exam General: Alert, Oriented HEENT: Pupils Equal, Pupils Reactive, EOMI, Mucous Membr. Moist/[place] Neck: +2 Carotid Pulse wo Bruit Lungs: Clear to Auscultation, Normal Respiratory Effort Cardiovascular: Regular Rate, Regular Rhythm GI/Abdominal Exam: Normal Bowel Sounds, Soft, Non-Tender, No Distention, Abnormal Bowel Sounds, Other (ostomy site ). No: Distended, Guarding, Rigid, Rebound, Tender Back Exam: Normal Inspection, Full Range of Motion Extremities: Normal Inspection, Normal Range of Motion, Non-Tender Skin: Warm, Dry, Intact Psy/Mental Status: Alert, Normal Affect - Problem List Review Problem List Initiated/Reviewed/Updated: Yes - My Orders Last 24 Hours: My Active Orders 10/10/18 Dinner Regular Diet [DIET] 10/10/18 Lunch Soft Diet [DIET] - Assessment Assessment:: 37 yo male admitted with recurrent small bowel obstruction. Continues to improve and would like to advance his diet today. Labs improved compared to yesterday. - Plan Plan:: 37 yo male admitted with recurrent SBO after presenting to clinic for evaluation of abdominal pain, nausea, vomiting, and fever. #1 Small Bowel Obstruction - Diagnosed clinically given symptoms and patient's history of the same. Is somewhat improved today but his ostomy output is still only liquid. Lactic normal this morning. 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 Will reconsider if he does not improve with conservative management. - NG has been removed and is tolerated clear liquids. Increases to full diet today. - IV fluids as below. #2 Dehydration #3 Acute Renal Failure, secondary to #2 #4 Hyporkalemia, secondary to #2 resolved #5 Leukocytosis, secondary to #2, resolved - Labs looking much better this morning. - fluids will continue until patient is eating a full diet without difficulty. - Recheck labs in the am. #6 High output ileostomy - Hold fiber until SBO is resolved. #7 Schizoaffective disorder #8 Idiopathic hypotension #9 Seizure disorder #10 Asthma #11 Hypoparathyroidism #12 Hypothyroidism - Continue only medications that are absolutely essential or are given by another route than PO. - Will add back medications as able. Patient will remain on acute today - NG tube removed, tolerating liquid diet, advancing today, and IV fluids remain through the night. Recheck labs in the am. Will hold off on pharmacologic VTE prophylaxis given chronic thrombocytopenia and the fact that he is at his usual functional baseline. Code status is DNR/DNI - if the patient continues to improve he may be ready for discharge tomorrow.
[2018-10-10] MEDS ORDERED: Potassium Chloride 20 MEQ Tab.ER PO SCH (12:00)
[2018-10-10] MEDS: NS + KCl 20mEq/L 1,000 ML IV SCH (14:05)
[2018-10-11] MEDS: NS + KCl 20mEq/L 1,000 ML IV SCH (03:53)
[2018-10-11] MEDS: FLUoxetine 20 MG Cap PO SCH (07:42)
[2018-10-11] MEDS: Acetaminophen 325 MG Tab PO SCH (07:43)
[2018-10-11] MEDS: Topiramate 50 MG Tab PO SCH (07:43)
[2018-10-11] MEDS: Midodrine 2.5 MG Tab PO SCH (07:44)
[2018-10-11] MEDS: ClonazePAM 0.5 MG Tab PO SCH (07:44)
[2018-10-11] MEDS: OLANZapine 10 MG Tab PO SCH (07:44)
[2018-10-11] MEDS: Potassium Chloride 20 MEQ Tab.ER PO SCH (07:44)
[2018-10-11] MEDS: Fluticasone-Salmeterol 113-14 MCG Powder Inhalant INH SCH (07:46)
[2018-10-11] MEDS: Enoxaparin 40 MG/0.4 ML Syringe SUBCUT SCH (08:01)
--- NOTE | 2018-10-11 09:01 | PN ---
Progress Note for NADER NOLASCO Date: 10/11/2018 Room #: VM.218 SUBJECTIVE: The patient is doing well with oral intake. He has not had any emesis. His NG had been removed. He has been making output through his colostomy bag. The patient is worried about staff care at long-term. OBJECTIVE: Vital Signs: His temperature is 36.6, pulse 83, blood pressure is 93/62, respirations are 14, saturations are 96%. General: He is calm, sipping a can of Mountain Dew. Heart: Regular rate and rhythm. Lungs: Clear to auscultation. Abdomen: Bowel sounds are present. It is soft. Colostomy bag is filling. LABORATORY DATA: Shows his white blood cell count 6.5, hemoglobin 12.8. Sodium 138, potassium 3.5, creatinine 0.8. GFR greater than 60. Calcium is 7.5. IMPRESSION: 1. Small bowel obstruction, which has resolved. 2. Hypokalemia, which has resolved. 3. Dehydration, resolved. 4. Acute kidney failure, resolved. PLAN: [facility] with [facility] and he will resume all his other medications today. GM10/11/2018 08:17:56 MODL: 10/11/2018 08:51:17 /[id number]
[2018-10-11] MEDS: CLOZAPINE 100 MG PO SCH (09:54)
[2018-10-11] MEDS: CLOZAPINE 200 MG PO SCH (09:55)
--- NOTE | 2018-10-14 08:46 | DISCH ---
PRIMARY DIAGNOSES: 1. Small bowel obstruction, resolved. 2. Dehydration. 3. Acute kidney injury secondary to dehydration. 4. Hypokalemia. 5. Leukocytosis. 6. Schizoaffective disorder. 7. Hypotension. 8. Hypothyroidism. 9. Seizure disorder. 10.Asthma. 11.Hypoparathyroidism. SUMMARY OF ADMIT HISTORY AND PHYSICAL: The patient is a 37-year-old resident of [facility] who presented with a history of abdominal pain for 1 to 2 days with decreased ostomy output and abdominal distention, nausea, and vomiting. He continued to pass gas. He had a fever up to 100.3. On physical exam, his pulse was 105, blood pressure is 82/53. His abdomen was soft, distended, tender. Bowel sounds are hypoactive. He had lab work done at [facility] which showed white blood cell count 14.7, hemoglobin 18.5, platelets 160 with 73 segs, 14 lymphocytes, 12 monocytes. His sodium was 132, potassium 5.3, creatinine 2.6, blood sugars 124, GFR was 28. SUMMARY OF HOSPITAL COURSE: He was admitted to Acute Care, given IV hydration. Many of his oral medications were held because he was n.p.o. His potassium was held because his potassium was slightly high to begin with. He had an NG tube placed for decompression. By next morning, he had slept well overnight. Abdomen was feeling much better. He could have some pop. He had not had much output though from his urostomy, so he was kept on bowel rest. Lab next morning had shown that his white blood cell count had dropped to 9.7, hemoglobin 14.1, potassium was 3.8, sodium 136, creatinine was 1.4, GFR was 57, lactic acid was 1.4. The patient then had his NG removed. He was given full liquids. He improved, was eating well. His ostomy started to have output that was significant by 10/08/2018 and many of his medications were resolved. It was noted his potassium had dropped down to 2.8, so he was given 40 mEq of potassium daily. By 10/11/2018, he was back to his baseline self, eating. His lab work on 10/10/2018 showed his white blood cell count was 6.5, hemoglobin 12.8, sodium 138, potassium 3.5, creatinine 0.8, GFR greater than 60. His magnesium was noted to be slightly low on 10/09/2018 at 1.6. MEDICATIONS: At discharge will be Tylenol 325 two pills 3 times a day, [place] nasal gel 2 sprays nostrils b.i.d. p.r.n., calcitriol 0.25 mcg capsules 1 capsule daily, albuterol HFA 2 puffs q.6 hours p.r.n., vitamin D 2000 units 1 pill daily, calcium with vitamin D 1 pill 3 times a day, cholestyramine 4 g packets 1 packet 3 times a day, clindamycin, benzoyl peroxide gel applied twice a day, Advair 250/50 one puff b.i.d., magnesium chloride 64 mg 2 pills 3 times a day, levothyroxine 25 mcg 1 pill daily, Culturelle 1 capsule b.i.d., multivitamin 1 pill daily, midodrine 5 mg 1 pill twice a day, Zyprexa 10 mg 1 tablet 4 times a day, Nystatin 1 application b.i.d. p.r.n., potassium chloride, Klor-Con 20 mEq 1 pill b.i.d., Klonopin 1 mg 1 pill b.i.d., Topamax 100 mg takes 250 mg b.i.d., clozapine which is Clozaril 100 mg tablets, he takes 3 pills twice a day, fluoxetine 40 mg daily. PLAN: His resuscitation status is do not resuscitate, do not intubate. The patient should have his electrolytes followed per his primary care provider. His diet will be resumed as what he was at his pre-admission diet. GM10/11/2018 08:30:09 MODL: 10/11/2018 13:32:53 /[id number]
== END 2018-10-11 09:50 | DRG 389 ==
LOC: VM.MS 15:58
PROVIDERS: ADMIT Family Medicine; ATTEND Family Medicine
DX: K56.609 Unspecified intestinal obstruction, unspecified as to partial versus complete obstruction (principal); N17.9 Acute kidney failure, unspecified; J45.909 Unspecified asthma, uncomplicated; K21.9 Gastro-esophageal reflux disease without esophagitis; F41.9 Anxiety disorder, unspecified; F32.9 Major depressive disorder, single episode, unspecified; F42.9 Obsessive-compulsive disorder, unspecified; Z66 Do not resuscitate; E03.9 Hypothyroidism, unspecified; E55.9 Vitamin D deficiency, unspecified; E86.0 Dehydration; D72.829 Elevated white blood cell count, unspecified; I95.0 Idiopathic hypotension; F25.9 Schizoaffective disorder, unspecified; G40.909 Epilepsy, unspecified, not intractable, without status epilepticus; E20.9 Hypoparathyroidism, unspecified; D69.6 Thrombocytopenia, unspecified; E87.6 Hypokalemia; Z93.2 Ileostomy status; Z90.49 Acquired absence of other specified parts of digestive tract; Z79.899 Other long term (current) drug therapy; Z90.89 Acquired absence of other organs
CPT/HCPCS: 36415; 80048; 83605; 83735; 85025; A9270-GY; J1650; J3475; J3480; J7120

== ENCOUNTER 2018-10-27 22:34 | Observation (INO) | payer MEDICARE, MEDICAID ==
[2018-10-28] LABS: CHLORIDE,CL 103 mmol/L (98-107); SODIUM,NA 138 mmol/L (136-145)
[2018-10-28 00:02] LABS: ANION GAP 16.2 mmol/L (10-20)
--- NOTE | 2018-10-28 01:03 | EDM.PDOC ---
ED HPI GENERAL MEDICAL PROBLEM - General Stated Complaint: BOWEL OBSTRUCTION Time Seen by Provider: 10/27/18 22:34 Source of Information: Reports: Patient, [facility] Records, RN Notes Reviewed History Limitations: Reports: Altered Mental Status (Hx. of traumatic brain injury) - History of Present Illness INITIAL COMMENTS - FREE TEXT/NARRATIVE: Pt. is sent to ER for evaluation from SCU at [facility]. Pt. has a colostomy, and staff was concerned that the patient's stool was too watery and bowel sounds were "hypoactive". They related to EMS that the patient's output has been decreased as well. Pt. denies any fever or chills. No chest pain or shortness of breath. Pt. denies any abdominal pain, nausea, vomiting, or other complaints. He states that he feels normal at this time. He is able to communicate, but is fatigued and slow to answer questions. Onset: Today Onset Date: 10/28/18 Location: Reports: Abdomen (decreased BS according to half-way. Pt. offers no complaints.) - Related Data Allergies Allergy/AdvReac Type Severity Reaction Status Date / Time No Known Allergies Allergy Verified 10/07/18 17:15 Home Meds: Home Meds Acetaminophen [Tylenol] 2 tab PO DAILY PRN 08/15/18 [History] Acetaminophen [Tylenol] 2 tab PO TID 08/15/18 [History] Albuterol Sulfate [Proventil Hfa] 2 puff INH Q6HR PRN 08/15/18 [History] Aloe Vera/Sodium Chloride [[place] Saline Nasal Gel] 2 spray CATHRYN BID PRN 08/15/18 [ History] Calcitriol 1 cap PO DAILY 08/15/18 [History] Calcium Citrate/Vitamin D3 [Calcium Citrate - Vit D Tablet] 1 tab PO TID [History] Cholecalciferol (Vitamin D3) [Vitamin D3] 1 tab PO DAILY 08/15/18 [History] Cholestyramine/Sucrose [Cholestyramine] 1 packet PO TID 08/15/18 [History] Clindamycin Phos/Benzoyl Perox [Clindamycin-Benzoyl Perox 1-5%] 1 applic TOP BID 08/15/18 [History] Fluticasone/Salmeterol [Advair 250-50] 1 puff INH BID 08/15/18 [History] Lactobacillus Rhamnosus GG [Culturelle] 1 cap PO BID 08/15/18 [History] Levothyroxine 25 mcg PO DAILY 08/15/18 [History] Magnesium Chloride [Mag-64] 2 tab PO TID 08/15/18 [History] Midodrine 1 tab PO BID 08/15/18 [History] Multivitamin with Minerals [Multivitamins with Minerals] 1 tab PO DAILY [History] Nystatin [Nyamyc] 1 applic TOP BID PRN 08/15/18 [History] OLANZapine [ZyPREXA] 1 tab PO QID 08/15/18 [History] Potassium Chloride [Klor-Con M20] 20 meq PO BID 08/15/18 [History] Topiramate [Topamax] 250 mg PO BID 08/15/18 [History] clonazePAM [Klonopin] 1 tab PO BID 08/15/18 [History] FLUoxetine HCl [Prozac] 40 mg PO DAILY 10/07/18 [History] cloZAPine [Clozaril] 300 mg PO BID 10/07/18 [History] Past Medical History HEENT History: Reports: None Cardiovascular History: Reports: Other (See Below) Other Cardiovascular History: hypotension Respiratory History: Reports: Asthma, Sleep Apnea Other Respiratory History: acute respiratory failure Gastrointestinal History: Reports: Bowel Obstruction, Chronic Diarrhea, GERD, Other (See Below) Other Gastrointestinal History: ileostomy Genitourinary History: Reports: None Musculoskeletal History: Reports: Other (See Below) Other Musculoskeletal History: chronic pain syndrome. muscle weakness Neurological History: Reports: Brain Injury, Seizure, Other (See Below) Other Neuro History: dysphonia. dementia Psychiatric History: Reports: Anxiety, Depression, OCD, Schizophrenia Endocrine/Metabolic History: Reports: Hypoparathyroidism, Hypothyroidism, Vitamin D Deficiency Hematologic History: Reports: Other (See Below) Other Hematologic History: thrombocytopenia. vit D deficiency. hypomagnesium. hypocalcemia Immunologic History: Reports: None Oncologic (Cancer) History: Reports: None Dermatologic History: Reports: None - Infectious Disease History Infectious Disease History: Reports: MRSA - Past Surgical History HEENT Surgical History: Reports: Oral Surgery, Tonsillectomy GI Surgical History: Reports: Appendectomy, Cholecystectomy, Colon, Hernia Repair/Other, Other (See Below) Other GI Surgeries/Procedures: ileostomy Musculoskeletal Surgical History: Reports: Arthroscopic Knee, ORIF Social & Family History - Family History Family Medical History: Unobtainable - Caffeine Use Caffeine Use: Reports: Coffee - Living Situation & Occupation Living situation: Reports: Single, Extended Care Facility Occupation: Disabled ED ROS GENERAL - Review of Systems Review Of Systems: See Below Constitutional: Reports: No Symptoms HEENT: Reports: No Symptoms Respiratory: Reports: No Symptoms Cardiovascular: Reports: No Symptoms Endocrine: Reports: No Symptoms GI/Abdominal: Reports: Other (see above. Denies any abdominal pain.) : Reports: No Symptoms Musculoskeletal: Reports: No Symptoms Skin: Reports: No Symptoms Neurological: Reports: No Symptoms Psychiatric: Reports: No Symptoms Hematologic/Lymphatic: Reports: No Symptoms Immunologic: Reports: No Symptoms ED EXAM, GENERAL - Physical Exam Exam: See Below Exam Limited By: No Limitations General Appearance: Alert, WD/WN, No Apparent Distress Throat/Mouth: Normal Inspection, Normal Lips, Normal Teeth, Normal Gums, Normal Oropharynx, Normal Voice, No Airway Compromise Head: Atraumatic, Normocephalic Neck: Normal Inspection, Supple, Non-Tender Respiratory/Chest: No Respiratory Distress, Lungs Clear, Normal Breath Sounds, No Accessory Muscle Use Cardiovascular: Normal Peripheral Pulses, Regular Rate, Rhythm, No Edema, No JVD , No Murmur GI/Abdominal: Normal Bowel Sounds, Soft, Non-Tender, No Organomegaly, No Distention, No Mass (Male) Exam: Deferred Rectal (Males) Exam: Deferred Back Exam: Normal Inspection, Full Range of Motion Extremities: Normal Inspection, Normal Range of Motion, Non-Tender, No Pedal Edema, Normal Capillary Refill Neurological: Alert, Oriented, CN II-XII Intact, Slow to Respond, Other ( Mentation consistent with previous interaction with patient-Hx. of TBI) Psychiatric: Depressed Mood, Flat Affect Skin Exam: Warm, Dry Lymphatic: No Adenopathy Course - Orders/Labs/Meds Orders: Active Orders 24 hr Category Date Time Status Patient Status [ADT] Routine ADT 10/28/18 01:04 Active Abdomen 2V AP Flat Upright [CR] Stat Exams 10/27/18 23:54 Taken Lactated Ringers [Ringers, Lactated] 1,000 ml Med 10/28/18 01:15 Active IV ASDIRECTED Sodium Chloride 0.9% [Saline Flush] Med 10/27/18 22:37 Active 10 ml FLUSH ASDIRECTED PRN Peripheral IV Insertion Adult [OM.PC] Routine Oth 10/27/18 22:39 Ordered Medication Orders Lactated Ringer's (Ringers, Lactated) 1,000 mls @ 500 mls/hr IV ASDIRECTED BENJI Sodium Chloride (Saline Flush) 10 ml FLUSH ASDIRECTED PRN PRN Reason: Keep Vein Open Labs: Laboratory Tests 10/27/18 10/27/18 10/27/18 Range/Units 23:07 23:07 23:07 WBC 9.7 (4.0-10.0) x10^3/uL RBC 4.58 (4.5-6.0) x10^6/uL Hgb 13.0 L (14.0-18.0) g/dL Hct 40.1 (40.0-52.0) % MCV 87.6 (78.0-93.0) fL MCH 28.4 (26.0-32.0) pg MCHC 32.4 (32.0-36.0) g/dL RDW Coeff of Shyann 15.3 H (10.0-15.0) % Plt Count 116 L (130-400) x10^3/uL Neut % (Auto) 61.1 (50.0-80.0) % Lymph % (Auto) 24.2 L (25.0-50.0) % [place] % (Auto) 11.3 H (2.0-11.0) % Eos % (Auto) 2.6 (0.0-4.0) % Baso % (Auto) 0.8 (0.2-1.2) % PT 11.0 (10.0-12.8) SEC INR 1.0 L (2.0-3.5) Sodium 138 (136-145) mmol/L Potassium 4.2 (3.5-5.1) mmol/L Chloride 103 (98-107) mmol/L Carbon Dioxide 23 (21-32) mmol/L Anion Gap 16.2 (10-20) mmol/L BUN 13 (7-18) mg/dL Creatinine 0.9 (0.70-1.30) mg/dL Est Cr Clr Drug Dosing TNP Estimated GFR (MDRD) > 60 Glucose 104 (74-106) mg/dL Calcium 8.2 L (8.5-10.1) mg/dL Corrected Calcium 8.84 (8.5-10.1) mg/dL Phosphorus 4.5 (2.6-4.7) mg/dL Magnesium 1.5 L (1.8-2.4) mg/dL Total Bilirubin 0.2 (0.2-1.0) mg/dL AST 40 H (15-37) U/L ALT 80 H (16-63) U/L Alkaline Phosphatase 139 H (46-116) U/L C-Reactive Protein < 0.2 (<=0.9) mg/dL Total Protein 7.2 (6.4-8.2) g/dL Albumin 3.2 L (3.4-5.0) g/dL Globulin 4.0 Albumin/Globulin Ratio 0.80 Meds: Medications Generic Name Dose Route Start Last Admin Trade Name Freq PRN Reason Stop Dose Admin Lactated Ringer's 1,000 mls @ 500 mls/hr 10/28/18 01:15 Ringers, Lactated IV ASDIRECTED BENJI Sodium Chloride 10 ml 10/27/18 22:37 Saline Flush FLUSH ASDIRECTED PRN Keep Vein Open Discontinued Medications Generic Name Dose Route Start Last Admin Trade Name Freq PRN Reason Stop Dose Admin Metoclopramide HCl 10 mg 10/28/18 01:07 Reglan IVPUSH 10/28/18 01:08 ONETIME ONE - Radiology Interpretation Free Text/Narrative:: Dilated bowel loops noted on F/U abdomen. No air fluid levels or obvious obstruction noted. Departure - Departure Time of Disposition: 01:19 Disposition: Refer to Observation Clinical Impression: Ileus - Discharge Information Referrals: Keely Cueva MD [Primary Care Provider] - - Problem List Review Problem List Initiated/Reviewed/Updated: Yes - My Orders Last 24 Hours: My Active Orders 10/27/18 22:37 Sodium Chloride 0.9% [Saline Flush] 10 ml FLUSH ASDIRECTED PRN 10/27/18 22:39 Peripheral IV Insertion Adult [OM.PC] Routine 10/27/18 23:54 Abdomen 2V AP Flat Upright [CR] Stat 10/28/18 01:04 Patient Status [ADT] Routine 10/28/18 01:15 Lactated Ringers [Ringers, Lactated] 1,000 ml IV ASDIRECTED - Assessment/Plan Admission H&P: Please use this note as an admission H&P Last 24 Hours: My Active Orders 10/27/18 22:37 Sodium Chloride 0.9% [Saline Flush] 10 ml FLUSH ASDIRECTED PRN 10/27/18 22:39 Peripheral IV Insertion Adult [OM.PC] Routine 10/27/18 23:54 Abdomen 2V AP Flat Upright [CR] Stat 10/28/18 01:04 Patient Status [ADT] Routine 10/28/18 01:15 Lactated Ringers [Ringers, Lactated] 1,000 ml IV ASDIRECTED Plan: Abdominal radiograph consistent with ileus. There does not appear to be any obvious obstruction. He is not nauseated and has not vomited. He has had good output into his colostomy. Will admit the patient observation. He will be kept NPO. He was started on IV LR at 500ml/hr and will be transitioned to maintenance fluids thereafter. Pt. will be started on Reglan to improve peristalsis. At this point, we will not be placing an NG, as he is not vomiting , having discomfort, etc. Will repeat lab and x-ray tomorrow. He is a code 2.
[2018-10-28] MEDS ORDERED: Metoclopramide 10 MG/2 ML SDV IVPUSH ONE (01:07)
[2018-10-28] MEDS ORDERED: Lactated Ringers 1,000 ML IV SCH (01:15)
[2018-10-28] MEDS ORDERED: Metoclopramide 10 MG/2 ML SDV IVPUSH SCH (01:45)
[2018-10-28] MEDS ORDERED: Magnesium Sulfate/Water 50 ML IV ONE (02:00)
[2018-10-28] MEDS ORDERED: Albuterol 0.083% 2.5 MG/3 ML Neb Soln INH PRN (02:05)
[2018-10-28] MEDS ORDERED: Acetaminophen 325 MG Tab PO PRN (02:05)
[2018-10-28] MEDS: Lactated Ringers 1,000 ML IV SCH ×4 (02:40→22:05)
[2018-10-28] MEDS: Metoclopramide 10 MG/2 ML SDV IVPUSH SCH ×5 (06:19→22:04)
[2018-10-28] MEDS: Midodrine 2.5 MG Tab PO SCH ×2 (06:19→18:26)
[2018-10-28] MEDS: Sodium Chloride 0.9% 10 ML Syringe FLUSH PRN ×3 (06:21→22:04)
[2018-10-28 07:04] LABS: CHLORIDE,CL 105 mmol/L (98-107); SODIUM,NA 139 mmol/L (136-145)
[2018-10-28] MEDS ORDERED: FLUoxetine 10 MG Cap PO SCH (08:00)
[2018-10-28] MEDS ORDERED: CLOZAPINE 250 MG PO SCH (08:00)
[2018-10-28] MEDS ORDERED: CLOZAPINE 300 MG PO SCH (08:00)
[2018-10-28] MEDS ORDERED: CLOZAPINE 100 MG PO SCH (08:00)
[2018-10-28] MEDS ORDERED: OLANZapine 10 MG Tab PO SCH (08:00)
[2018-10-28] MEDS: Acetaminophen 325 MG Tab PO SCH ×3 (08:10→20:58)
[2018-10-28] MEDS: Topiramate 50 MG Tab PO SCH ×2 (08:10→20:58)
[2018-10-28] MEDS: Levothyroxine 25 MCG Tab PO SCH (08:11)
[2018-10-28] MEDS: Calcitriol 0.25 MCG Cap PO SCH (08:11)
[2018-10-28] MEDS: Magnesium Chloride 64 MG Tab.ER PO SCH ×3 (08:11→20:59)
[2018-10-28] MEDS: Potassium Chloride 20 MEQ Tab.ER PO SCH ×2 (08:11→20:58)
[2018-10-28] MEDS: FLUoxetine 20 MG Cap PO SCH (08:11)
[2018-10-28] MEDS: ClonazePAM 0.5 MG Tab PO SCH ×2 (08:11→20:59)
[2018-10-28] MEDS: Fluticasone-Salmeterol 113-14 MCG Powder Inhalant INH SCH ×2 (08:12→21:00)
[2018-10-28] MEDS: CLOZAPINE 200 MG PO SCH ×2 (08:12→21:00)
--- NOTE | 2018-10-28 08:54 | CR ---
[id number] RAD/RAD Abd Flat and Upright 2V EXAM: ABDOMEN 2 VIEWS INDICATION: Abdominal pain. COMPARISON: None. DISCUSSION: Evaluation is limited by patient size and exclusion of only the upper abdomen. Dilated gas-filled loops in the upper abdomen could relate to an ileus or obstruction. Abdomen and pelvis CT would be useful for further characterization. Surgical clips in the right upper quadrant likely relate to prior cholecystectomy. Possible ingested pill fragments in the mid abdomen the largest measuring up to 14 mm in diameter. IMPRESSION: 1. Gas-filled dilated bowel loops in the upper abdomen. This may relate to an ileus, but CT or follow-up radiographs would be suggested to help further exclude developing obstruction. Hilario Castaneda MD 10/28/18 0852 Thank you for allowing us to participate in the care of your patient.
[2018-10-28] MEDS: OLANZapine 10 MG Tab PO SCH ×4 (10:23→20:59)
[2018-10-28] MEDS ORDERED: Iopamidol 612 MG/ML 100 ML Bottle IVPUSH ONE (10:54)
--- NOTE | 2018-10-28 11:45 | CT ---
[id number] CT/CT Abdomen Pelvis W IV EXAM: ABDOMEN AND PELVIS CT WITH CONTRAST INDICATION: Ileus. COMPARISON: Plain radiographs October 27, [address] April 10, 2018. DISCUSSION: Right abdominal ostomy. Complex surgical changes involving small and large bowel resections with complicated anastomoses in the mid lower abdomen. Bowel leading into the anastomoses is persistently dilated up to about 7 cm suggesting obstruction. There is mild twisting of the involved mesentery. Persistent right abdominal ostomy. Small fat-containing right inguinal hernia subcentimeter hypodensity in the upper pole of left kidney likely representing a cyst. Cholecystectomy. Fatty infiltration of the liver. A mild thick-walled appearance of the bladder is nonspecific, but may relate to cystitis or chronic outlet obstruction and has minimally changed. The prostate is enlarged. The pancreas, spleen, adrenal glands, and right kidney are normal in appearance. Degenerative changes in the spine. Partial fusion of T11-T12 vertebral bodies. Degenerative changes in the spine. IMPRESSION: 1. Complex small and large bowel surgical changes with dilated loops of bowel in the mid abdomen compatible with small bowel obstruction. The involved mesentery appears mildly twisted. Hilario Castaneda MD 10/28/18 1149 Thank you for allowing us to participate in the care of your patient.
--- NOTE | 2018-10-28 12:45 | PCM.PN ---
- General Info Date of Service: 10/28/18 Subjective Update: Pt. did well overnight. Continues to deny any abdominal discomfort or nausea. He has not been vomiting. He has had good output into his ileostomy. Labs this AM were within normal limits. His white count has not been elevated. He is currently receiving IV LR at 200ml/hr. CT scan this AM revealed complex small and large bowel surgical changes with dilated loops of bowel consistent with SBO. There is some mild mesentaric twisting. Functional Status: Reports: Pain Controlled - Review of Systems General: Reports: No Symptoms HEENT: Reports: No Symptoms Pulmonary: Reports: No Symptoms Cardiovascular: Reports: No Symptoms Gastrointestinal: Reports: Abdominal Pain Genitourinary: Reports: No Symptoms Musculoskeletal: Reports: No Symptoms Skin: Reports: No Symptoms Neurological: Reports: No Symptoms Psychiatric: Reports: No Symptoms - Patient Data Vitals - Most Recent: Last Vital Signs Temp 36.7 C 10/28/18 10:00 Pulse 82 10/28/18 10:00 Resp 16 10/28/18 06:00 BP 82/52 L 10/28/18 10:00 Pulse Ox 97 10/28/18 10:00 Weight - Most Recent: 74.843 kg I&O - Last 24 Hours: Intake & Output 10/27/18 10/28/18 10/28/18 22:59 06:59 14:59 Intake Total 1049 0 Output Total 800 Balance 249 0 Lab Results Last 24 Hours: Laboratory Results - last 24 hr 10/27/18 10/27/18 10/27/18 Range/Units 23:07 23:07 23:07 WBC 9.7 (4.0-10.0) x10^3/uL RBC 4.58 (4.5-6.0) x10^6/uL Hgb 13.0 L (14.0-18.0) g/dL Hct 40.1 (40.0-52.0) % MCV 87.6 (78.0-93.0) fL MCH 28.4 (26.0-32.0) pg MCHC 32.4 (32.0-36.0) g/dL RDW Coeff of Shyann 15.3 H (10.0-15.0) % Plt Count 116 L (130-400) x10^3/uL Neut % (Auto) 61.1 (50.0-80.0) % Lymph % (Auto) 24.2 L (25.0-50.0) % [place] % (Auto) 11.3 H (2.0-11.0) % Eos % (Auto) 2.6 (0.0-4.0) % Baso % (Auto) 0.8 (0.2-1.2) % Add Manual Diff Neutrophils % (Manual) (50-80) % Lymphocytes % (Manual) (25-50) % Monocytes % (Manual) (2-11) % Platelet Estimate PT 11.0 (10.0-12.8) SEC INR 1.0 L (2.0-3.5) Sodium 138 (136-145) mmol/L Potassium 4.2 (3.5-5.1) mmol/L Chloride 103 (98-107) mmol/L Carbon Dioxide 23 (21-32) mmol/L Anion Gap 16.2 (10-20) mmol/L BUN 13 (7-18) mg/dL Creatinine 0.9 (0.70-1.30) mg/dL Est Cr Clr Drug Dosing TNP Estimated GFR (MDRD) > 60 Glucose 104 (74-106) mg/dL Calcium 8.2 L (8.5-10.1) mg/dL Corrected Calcium 8.84 (8.5-10.1) mg/dL Phosphorus 4.5 (2.6-4.7) mg/dL Magnesium 1.5 L (1.8-2.4) mg/dL Total Bilirubin 0.2 (0.2-1.0) mg/dL AST 40 H (15-37) U/L ALT 80 H (16-63) U/L Alkaline Phosphatase 139 H (46-116) U/L C-Reactive Protein < 0.2 (<=0.9) mg/dL Total Protein 7.2 (6.4-8.2) g/dL Albumin 3.2 L (3.4-5.0) g/dL Globulin 4.0 Albumin/Globulin Ratio 0.80 10/28/18 10/28/18 Range/Units 06:37 06:37 WBC 7.3 (4.0-10.0) x10^3/uL RBC 4.35 L (4.5-6.0) x10^6/uL Hgb 12.4 L (14.0-18.0) g/dL Hct 38.4 L (40.0-52.0) % MCV 88.3 (78.0-93.0) fL MCH 28.5 (26.0-32.0) pg MCHC 32.3 (32.0-36.0) g/dL RDW Coeff of Shyann 15.3 H (10.0-15.0) % Plt Count 109 L (130-400) x10^3/uL Neut % (Auto) (50.0-80.0) % Lymph % (Auto) (25.0-50.0) % [place] % (Auto) (2.0-11.0) % Eos % (Auto) (0.0-4.0) % Baso % (Auto) (0.2-1.2) % Add Manual Diff Yes Neutrophils % (Manual) 46 L (50-80) % Lymphocytes % (Manual) 44 (25-50) % Monocytes % (Manual) 10 (2-11) % Platelet Estimate Decreased L PT (10.0-12.8) SEC INR (2.0-3.5) Sodium 139 (136-145) mmol/L Potassium 4.0 (3.5-5.1) mmol/L Chloride 105 (98-107) mmol/L Carbon Dioxide 25 (21-32) mmol/L Anion Gap 13.0 (10-20) mmol/L BUN 10 (7-18) mg/dL Creatinine 0.9 (0.70-1.30) mg/dL Est Cr Clr Drug Dosing 104.05 Estimated GFR (MDRD) > 60 Glucose 87 (74-106) mg/dL Calcium 8.1 L (8.5-10.1) mg/dL Corrected Calcium (8.5-10.1) mg/dL Phosphorus (2.6-4.7) mg/dL Magnesium (1.8-2.4) mg/dL Total Bilirubin (0.2-1.0) mg/dL AST (15-37) U/L ALT (16-63) U/L Alkaline Phosphatase (46-116) U/L C-Reactive Protein (<=0.9) mg/dL Total Protein (6.4-8.2) g/dL Albumin (3.4-5.0) g/dL Globulin Albumin/Globulin Ratio Med Orders - Current: Current Medications Acetaminophen (Tylenol) 650 mg PO DAILY PRN PRN Reason: Pain Acetaminophen (Tylenol) 650 mg PO TID [facility] Last Admin: 10/28/18 12:33 Dose: 650 mg Albuterol (Proventil Neb Soln) 2.5 mg INH Q6H PRN PRN Reason: wheezing Calcitriol (Rocaltrol) 0.25 mcg PO DAILY [facility] Last Admin: 10/28/18 08:11 Dose: 0.25 mcg Clonazepam (Klonopin) 1 mg PO BID [facility] Last Admin: 10/28/18 08:11 Dose: 1 mg Fluoxetine HCl (Prozac) 40 mg PO DAILY [facility] Last Admin: 10/28/18 08:11 Dose: 40 mg Lactated Ringer's (Ringers, Lactated) 1,000 mls @ 125 mls/hr IV ASDIRECTED [facility] Last Admin: 10/28/18 10:27 Dose: 200 mls/hr Levothyroxine Sodium (Levothyroxine) 25 mcg PO DAILY [facility] Last Admin: 10/28/18 08:11 Dose: 25 mcg Magnesium Chloride (Mag-64) 128 mg PO TID [facility] Last Admin: 10/28/18 12:33 Dose: 128 mg Metoclopramide HCl (Reglan) 5 mg IVPUSH Q4H [facility] Last Admin: 10/28/18 10:23 Dose: 5 mg Midodrine (Midodrine) 5 mg PO BIDAC [facility] Last Admin: 10/28/18 06:19 Dose: 5 mg Clozapine 200 Mg (Own Med) 1 each PO BID [facility] Last Admin: 10/28/18 08:12 Dose: 1 each Clozapine 100 Mg (Own Med) 0 mg PO BID [facility] Olanzapine (Zyprexa) 10 mg PO QID [facility] Last Admin: 10/28/18 12:33 Dose: 10 mg Potassium Chloride (Klor-Con M20) 20 meq PO BID [facility] Last Admin: 10/28/18 08:11 Dose: 20 meq Fluticasone/Salmeterol (Fluticasone-Salmeterol 113-14 Mcg Powder Inh) 0 puff INH BID [facility] Last Admin: 10/28/18 08:12 Dose: 1 puff Sodium Chloride (Saline Flush) 10 ml FLUSH ASDIRECTED PRN PRN Reason: Keep Vein Open Last Admin: 10/28/18 06:21 Dose: 10 ml Topiramate (Topamax) 250 mg PO BID [facility] Last Admin: 10/28/18 08:10 Dose: 250 mg Discontinued Medications Fluoxetine HCl (Prozac) 10 mg PO DAILY [facility] Lactated Ringer's (Ringers, Lactated) 1,000 mls @ 500 mls/hr IV ASDIRECTED [facility] Last Admin: 10/28/18 01:21 Dose: 500 mls/hr Magnesium Sulfate (Magnesium Sulfate In Water Premix) 50 mls @ 25 mls/hr IV ONETIME ONE Stop: 10/28/18 03:59 Last Admin: 10/28/18 02:36 Dose: 25 mls/hr Iopamidol (Isovue-300 (61%)) 100 ml IVPUSH ONETIME ONE Stop: 10/28/18 10:55 Metoclopramide HCl (Reglan) 10 mg IVPUSH ONETIME ONE Stop: 10/28/18 01:08 Last Admin: 10/28/18 01:21 Dose: 10 mg Metoclopramide HCl (Reglan) 5 mg IVPUSH Q4H [facility] Last Admin: 10/28/18 02:31 Dose: Not Given Non-Formulary Medication (Clozapine) 300 mg PO DAILY [facility] Non-Formulary Medication (Clozapine [Clozapine]) 250 mg PO DAILY [facility] Clozapine 100 Mg (Own Med) 300 mg PO BID [facility] Last Admin: 10/28/18 08:14 Dose: 300 mg Olanzapine (Zyprexa) 10 mg PO QID [facility] - Exam General: Other (alert, slow to respond, consisent with prior TBI.) Lungs: Clear to Auscultation, Normal Respiratory Effort Cardiovascular: Regular Rate, Regular Rhythm GI/Abdominal Exam: Normal Bowel Sounds, Soft, Non-Tender, No Organomegaly, No Distention, Other (ileostomy noted. post surgical changes noted.) (Male) Exam: Deferred Extremities: Normal Inspection, Normal Range of Motion, Non-Tender Skin: Warm, Dry, Intact - Problem List Review Problem List Initiated/Reviewed/Updated: Yes - My Orders Last 24 Hours: My Active Orders 10/27/18 22:37 Sodium Chloride 0.9% [Saline Flush] 10 ml FLUSH ASDIRECTED PRN 10/27/18 22:39 Peripheral IV Insertion Adult [OM.PC] Routine 10/28/18 01:04 Patient Status [ADT] Routine 10/28/18 01:39 Intake and Output [RC] 06,18 Vital Signs [RC] 02,06,10,14,18,22 10/28/18 01:40 Code Status [Resuscitation Status] Routine 10/28/18 01:42 Activity as Tolerated [RC] 08,20 10/28/18 01:45 Lactated Ringers [Ringers, Lactated] 1,000 ml IV ASDIRECTED 10/28/18 01:54 Antiembolic Devices [RC] 08,20 Sequential Compression Device [OM.PC] Routine 10/28/18 02:05 Acetaminophen [Tylenol] 650 mg PO DAILY PRN Albuterol [Proventil Neb Soln] 2.5 mg INH Q6H PRN 10/28/18 06:00 Metoclopramide [Reglan] 5 mg IVPUSH Q4H 10/28/18 07:00 Midodrine 5 mg PO BIDAC 10/28/18 08:00 Acetaminophen [Tylenol] 650 mg PO TID Calcitriol [Rocaltrol] 0.25 mcg PO DAILY ClonazePAM [KlonoPIN] 1 mg PO BID FLUoxetine [PROzac] 40 mg PO DAILY Fluticasone/Salmeterol [Fluticasone-Salmeterol 113-14 MCG Powder Inh] 0 puff INH BID Levothyroxine 25 mcg PO DAILY Magnesium Chloride [Mag-64] 128 mg PO TID Non-Formulary Medication [NF Drug] 1 each PO BID Potassium Chloride [Klor-Con M20] 20 meq PO BID Topiramate [Topamax] 250 mg PO BID 10/28/18 09:45 OLANZapine [ZyPREXA] 10 mg PO QID 10/28/18 09:47 Clozapine 0 mg PO BID 10/28/18 Breakfast Nothing Per Oral Diet [DIET] 10/28/18 Dinner Full Liquid Diet [DIET] - Plan Plan:: CT scan discussed with Dr. Castaneda, [facility], and Dr. Hernandez, [facility]. Dr. Hernandez reviewed the CT scan and feels that, since the pt. has had good output, is not vomiting, and is not having any discomfort, he does not require any surgical intervention. Will advance his diet to full liquids for lunch and slowly advance him over the next 24 hours. I did speak with his father who is known to me and is a physician ice cream freezer assistant in [place], [place]. He advised that the family wishes to avoid any surgical intervention if at all possible. Pt. will be kept on IV reglan 5 mg every 4 hours. IV LR was decreased to 125ml/hr. All questions were answered. Anticipate discharge in the AM.
[2018-10-28] MEDS: CLOZAPINE 100 MG PO SCH (21:01)
[2018-10-29] MEDS: Sodium Chloride 0.9% 10 ML Syringe FLUSH PRN ×2 (02:25→06:16)
[2018-10-29] MEDS: Metoclopramide 10 MG/2 ML SDV IVPUSH SCH ×3 (02:25→09:57)
[2018-10-29] MEDS: Midodrine 2.5 MG Tab PO SCH (06:16)
[2018-10-29 07:15] LABS: CHLORIDE,CL 107 mmol/L (98-107); SODIUM,NA 142 mmol/L (136-145)
[2018-10-29 07:17] LABS: ANION GAP 12.9 mmol/L (10-20)
[2018-10-29] MEDS: Topiramate 50 MG Tab PO SCH (07:38)
[2018-10-29] MEDS: Acetaminophen 325 MG Tab PO SCH ×2 (07:39→11:45)
[2018-10-29] MEDS: FLUoxetine 20 MG Cap PO SCH (07:39)
[2018-10-29] MEDS: Calcitriol 0.25 MCG Cap PO SCH (07:39)
[2018-10-29] MEDS: Magnesium Chloride 64 MG Tab.ER PO SCH ×2 (07:39→11:45)
[2018-10-29] MEDS: Levothyroxine 25 MCG Tab PO SCH (07:39)
[2018-10-29] MEDS: OLANZapine 10 MG Tab PO SCH ×2 (07:39→11:45)
[2018-10-29] MEDS: ClonazePAM 0.5 MG Tab PO SCH (07:39)
[2018-10-29] MEDS: Potassium Chloride 20 MEQ Tab.ER PO SCH (07:39)
[2018-10-29] MEDS: CLOZAPINE 100 MG PO SCH (07:40)
[2018-10-29] MEDS: Fluticasone-Salmeterol 113-14 MCG Powder Inhalant INH SCH (07:40)
[2018-10-29] MEDS: CLOZAPINE 200 MG PO SCH (07:41)
--- NOTE | 2018-10-29 12:53 | PCM.DCSUM1 ---
Discharge Summary - Hospital Course Free Text/Narrative:: Patient here with questionable bowel obstruction. CT result indicates small bowel obstruction. Diagnosis: Stroke: No Modified [place] Scale: No Symptoms at All Modified [place] Scale Score: 0 - Discharge Data Discharge Date: 10/29/18 Discharge Disposition: Home, Self-Care 01 Condition: Good - Patient Instructions Diet: GI Soft/Low Residue/Low Fiber (advance diet as tolerated) Notify Provider of: Nausea and/or Vomiting - Discharge Plan *PRESCRIPTION DRUG MONITORING PROGRAM REVIEWED*: Not Applicable *COPY OF PRESCRIPTION DRUG MONITORING REPORT IN PATIENT JANET: Not Applicable Home Medications: Home Meds Acetaminophen [Tylenol] 650 mg PO DAILY PRN 08/15/18 [History] Acetaminophen [Tylenol] 650 mg PO TID 08/15/18 [History] Albuterol Sulfate [Proventil Hfa] 2 puff INH Q6HR PRN 08/15/18 [History] Aloe Vera/Sodium Chloride [[place] Saline Nasal Gel] 2 spray CATHRYN BID PRN 08/15/18 [ History] Calcitriol 1 cap PO DAILY 08/15/18 [History] Calcium Citrate/Vitamin D3 [Calcium Citrate - Vit D Tablet] 1 tab PO TIDMEALS [History] Cholecalciferol (Vitamin D3) [Vitamin D3] 1 tab PO DAILY 08/15/18 [History] Cholestyramine/Sucrose [Cholestyramine] 1 packet PO TID 08/15/18 [History] Clindamycin Phos/Benzoyl Perox [Clindamycin-Benzoyl Perox 1-5%] 1 applic TOP BID 08/15/18 [History] Lactobacillus Rhamnosus GG [Culturelle] 1 cap PO BID 08/15/18 [History] Levothyroxine 25 mcg PO DAILY 08/15/18 [History] Magnesium Chloride [Mag-64] 128 mg PO TID 08/15/18 [History] Midodrine 1 tab PO BIDAC 08/15/18 [History] Nystatin [Nyamyc] 1 applic TOP BID PRN 08/15/18 [History] OLANZapine [ZyPREXA] 1 tab PO QID 08/15/18 [History] Potassium Chloride [Klor-Con M20] 20 meq PO BID 08/15/18 [History] clonazePAM [Klonopin] 1 tab PO BID 08/15/18 [History] cloZAPine [Clozaril] 300 mg PO DAILY 10/07/18 [History] FLUoxetine HCl [Fluoxetine HCl] 40 mg PO DAILY 10/28/18 [History] Fluticasone/Salmeterol [Advair 250-50 Diskus] 1 puff INH BID 10/28/18 [History] Multivitamin W/Iron, Minerals [Flintstones Complete] 60 mg PO DAILY 10/28/18 [ History] Topiramate [Topamax] 250 mg PO BID 10/28/18 [History] Forms: ED Department Discharge Referrals: Keely Cueva MD [Primary Care Provider] - - Discharge Summary/Plan Comment DC Time >30 min.: Yes Discharge Summary/Plan Comment: Discharge back to care center. Advance diet slowly as tolerated. Return if nausea/vomiting/abdominal pain arises. - General Info Subjective Update: Pt. did well overnight. Continues to deny any abdominal discomfort or nausea. He has not been vomiting. He has had good output into his ileostomy. Labs this AM were within normal limits. His white count has not been elevated. He is currently receiving IV LR at 200ml/hr. CT scan this AM revealed complex small and large bowel surgical changes with dilated loops of bowel consistent with SBO. There is some mild mesentaric twisting. Functional Status: Reports: Tolerating Diet - Review of Systems General: Reports: No Symptoms HEENT: Reports: No Symptoms Pulmonary: Reports: No Symptoms Cardiovascular: Reports: No Symptoms Gastrointestinal: Reports: No Symptoms Genitourinary: Reports: No Symptoms Musculoskeletal: Reports: No Symptoms Skin: Reports: No Symptoms Neurological: Reports: No Symptoms Psychiatric: Reports: No Symptoms - Patient Data Vitals - Most Recent: Last Vital Signs Temp 36.7 C 10/29/18 09:44 Pulse 86 10/29/18 09:44 Resp 16 10/29/18 09:44 BP 83/55 L 10/29/18 09:44 Pulse Ox 97 10/29/18 09:44 Weight - Most Recent: 74.843 kg I&O - Last 24 hours: Intake & Output 10/28/18 10/29/18 10/29/18 22:59 06:59 14:59 Intake Total 1922 1476 240 Output Total 950 1900 Balance 972 -424 240 Lab Results - Last 24 hrs: Laboratory Results - last 24 hr 10/29/18 10/29/18 Range/Units 06:50 06:50 WBC 5.6 (4.0-10.0) x10^3/uL RBC 4.18 L (4.5-6.0) x10^6/uL Hgb 11.8 L (14.0-18.0) g/dL Hct 37.4 L (40.0-52.0) % MCV 89.5 (78.0-93.0) fL MCH 28.2 (26.0-32.0) pg MCHC 31.6 L (32.0-36.0) g/dL RDW Coeff of Shyann 15.5 H (10.0-15.0) % Plt Count 110 L (130-400) x10^3/uL Neut % (Auto) 50.8 (50.0-80.0) % Lymph % (Auto) 32.7 (25.0-50.0) % [place] % (Auto) 11.2 H (2.0-11.0) % Eos % (Auto) 4.4 H (0.0-4.0) % Baso % (Auto) 0.9 (0.2-1.2) % Sodium 142 (136-145) mmol/L Potassium 3.9 (3.5-5.1) mmol/L Chloride 107 (98-107) mmol/L Carbon Dioxide 26 (21-32) mmol/L Anion Gap 12.9 (10-20) mmol/L BUN 6 L (7-18) mg/dL Creatinine 0.9 (0.70-1.30) mg/dL Est Cr Clr Drug Dosing 104.05 mL/min Estimated GFR (MDRD) > 60 Glucose 88 (74-106) mg/dL Calcium 8.0 L (8.5-10.1) mg/dL Med Orders - Current: Current Medications Acetaminophen (Tylenol) 650 mg PO DAILY PRN PRN Reason: Pain Acetaminophen (Tylenol) 650 mg PO TID [facility] Last Admin: 10/29/18 11:45 Dose: 650 mg Albuterol (Proventil Neb Soln) 2.5 mg INH Q6H PRN PRN Reason: wheezing Calcitriol (Rocaltrol) 0.25 mcg PO DAILY [facility] Last Admin: 10/29/18 07:39 Dose: 0.25 mcg Clonazepam (Klonopin) 1 mg PO BID [facility] Last Admin: 10/29/18 07:39 Dose: 1 mg Fluoxetine HCl (Prozac) 40 mg PO DAILY [facility] Last Admin: 10/29/18 07:39 Dose: 40 mg Lactated Ringer's (Ringers, Lactated) 1,000 mls @ 125 mls/hr IV ASDIRECTED [facility] Last Admin: 10/28/18 22:05 Dose: 200 mls/hr Levothyroxine Sodium (Levothyroxine) 25 mcg PO DAILY [facility] Last Admin: 10/29/18 07:39 Dose: 25 mcg Magnesium Chloride (Mag-64) 128 mg PO TID [facility] Last Admin: 10/29/18 11:45 Dose: 128 mg Metoclopramide HCl (Reglan) 5 mg IVPUSH Q4H [facility] Last Admin: 10/29/18 09:57 Dose: 5 mg Midodrine (Midodrine) 5 mg PO BIDAC [facility] Last Admin: 10/29/18 06:16 Dose: 5 mg Clozapine 200 Mg (Own Med) 1 each PO BID [facility] Last Admin: 10/29/18 07:41 Dose: 1 each Clozapine 100 Mg (Own Med) 0 mg PO BID [facility] Last Admin: 10/29/18 07:40 Dose: 100 mg Olanzapine (Zyprexa) 10 mg PO QID [facility] Last Admin: 10/29/18 11:45 Dose: 10 mg Potassium Chloride (Klor-Con M20) 20 meq PO BID [facility] Last Admin: 10/29/18 07:39 Dose: 20 meq Fluticasone/Salmeterol (Fluticasone-Salmeterol 113-14 Mcg Powder Inh) 0 puff INH BID [facility] Last Admin: 10/29/18 07:40 Dose: 1 puff Sodium Chloride (Saline Flush) 10 ml FLUSH ASDIRECTED PRN PRN Reason: Keep Vein Open Last Admin: 10/29/18 06:16 Dose: 10 ml Topiramate (Topamax) 250 mg PO BID [facility] Last Admin: 10/29/18 07:38 Dose: 250 mg Discontinued Medications Fluoxetine HCl (Prozac) 10 mg PO DAILY [facility] Lactated Ringer's (Ringers, Lactated) 1,000 mls @ 500 mls/hr IV ASDIRECTED [facility] Last Admin: 10/28/18 01:21 Dose: 500 mls/hr Magnesium Sulfate (Magnesium Sulfate In Water Premix) 50 mls @ 25 mls/hr IV ONETIME ONE Stop: 10/28/18 03:59 Last Admin: 10/28/18 02:36 Dose: 25 mls/hr Iopamidol (Isovue-300 (61%)) 100 ml IVPUSH ONETIME ONE Stop: 10/28/18 10:55 Last Admin: 10/28/18 11:00 Dose: 100 ml Metoclopramide HCl (Reglan) 10 mg IVPUSH ONETIME ONE Stop: 10/28/18 01:08 Last Admin: 10/28/18 01:21 Dose: 10 mg Metoclopramide HCl (Reglan) 5 mg IVPUSH Q4H [facility] Last Admin: 10/28/18 02:31 Dose: Not Given Non-Formulary Medication (Clozapine) 300 mg PO DAILY [facility] Non-Formulary Medication (Clozapine [Clozapine]) 250 mg PO DAILY [facility] Clozapine 100 Mg (Own Med) 300 mg PO BID [facility] Last Admin: 10/28/18 08:14 Dose: 300 mg Olanzapine (Zyprexa) 10 mg PO QID [facility] - Exam General: Reports: Alert, Cooperative, No Acute Distress HEENT: Reports: Pupils Equal, Pupils Reactive, EOMI, Mucous Membr. Moist/Zap Neck: Reports: Supple Lungs: Reports: Clear to Auscultation, Normal Respiratory Effort Cardiovascular: Reports: Regular Rate, Regular Rhythm GI/Abdominal Exam: Normal Bowel Sounds, Soft, Non-Tender, No Organomegaly, No Distention, No Abnormal Bruit, No Mass, Pelvis Stable, Other (colostomy intact, stoma pink, approximated) Back Exam: Reports: Normal Inspection, Full Range of Motion Extremities: Normal Inspection, Normal Range of Motion, Non-Tender, No Pedal Edema, Normal Capillary Refill Skin: Reports: Warm, Dry, Intact Wound/Incisions: Reports: Healing Well Neurological: Reports: No New Focal Deficit Psy/Mental Status: Reports: Alert, Normal Affect, Normal Mood
== END 2018-10-29 13:45 ==
LOC: VM.ED 22:34 → VM.MS 10-28 01:22
PROVIDERS: ADMIT Physician Assistant; ATTEND Physician Assistant
DX: K56.699 Other intestinal obstruction unspecified as to partial versus complete obstruction (principal); E03.9 Hypothyroidism, unspecified; J45.909 Unspecified asthma, uncomplicated; Z93.3 Colostomy status; Z79.51 Long term (current) use of inhaled steroids; Z79.899 Other long term (current) drug therapy
CPT/HCPCS: 36415; 74019; 74177; 80048; 80053; 83735; 84100; 85025; 85610; 86140; 96361; 96365; 96366; 96374; 96375; 96376; 99217; 99220; 99225; 99285; A9270; G0378; J2765; J3475; J7120; Q9967